=== PATIENT | male | born 1950 | race Caucasian/White ===

== ENCOUNTER 2019-09-06 05:01 | Inpatient (IN) | payer MEDICARE, OTHER, SELFPAY ==
[2019-09-06] VITALS (8 sets, daily range): BP systolic 139–184; BP diastolic 62–85; PULSE 54–90; RESP 16–22; TEMP 36.3–37.1; O2SAT 91–97; BMI 30.4
--- NOTE | 2019-09-06 05:14 | CTR_ITS ---
PROCEDURE INFORMATION: Exam: CT Abdomen And Pelvis With Contrast Exam date and time: 09/06/2019 5:19 AM Age: 69 years old Clinical indication: Abdominal pain; Generalized; Patient HX: Severe diffuse abd pain with nausea starting last night; Additional info: Rlq pain TECHNIQUE: Imaging protocol: Computed tomography of the abdomen and pelvis with intravenous contrast. Total DLP: 1226.54 mGy-cm Radiation optimization: All CT scans at this facility use at least one of these dose optimization techniques: automated exposure control; mA and/or kV adjustment per patient size (includes targeted exams where dose is matched to clinical indication); or iterative reconstruction. Contrast material: OMNI 300; Contrast volume: 95 ml; Contrast route: 20G LAC; COMPARISON: CT pelvis w con* [id number] 11/28/2016 12:32 PM FINDINGS: Liver: There is a 2.1 cm simple appearing cystic mass seen within the right hepatic lobe. Gallbladder and bile ducts: There are multiple small gallstones present. There are no inflammatory changes present to suggest cholecystitis. Pancreas: There are strandy opacity seen adjacent to the pancreatic body and tail and some fluid attenuation seen within the lateral conal fascia on the left and adjacent to Generose fascia. These findings raise suspicion for pancreatitis. Spleen: Normal. No splenomegaly. Adrenals: Normal. No mass. Kidneys and ureters: There is a 7.7 mm simple appearing cystic mass seen within the right kidney. There are stable nonobstructing right renal calculi present. Stomach and bowel: There are loops of nondilated small bowel containing some desiccated bowel contents, findings suggesting stasis and small bowel enteritis. Appendix: The appendix is visualized and is normal in configuration. Intraperitoneal space: Unremarkable. No free air. No significant fluid collection. Vasculature: Unremarkable. No abdominal aortic aneurysm. Lymph nodes: Unremarkable. No enlarged lymph nodes. Bladder: Unremarkable as visualized. Reproductive: Unremarkable as visualized. Bones/joints: Unremarkable. No acute fracture. Soft tissues: Unremarkable. CT/CT abdomen pelvis w con* [id number] IMPRESSION: 1. There are strandy opacity seen in the peripancreatic fat and fascia adjacent to the pancreatic body and tail and some strandy opacities of fluid attenuation is seen on T0 this fascia and lateral conal fascia on the left, findings compatible with inflammatory changes and pancreatitis. 2. Simple right hepatic cyst measuring 2.1 cm. No further workup needed. 3. Multiple small gallstones without evidence of cholecystitis. 4. Simple appearing right renal cyst measuring 7.7 mm 5. Stable nonobstructing right renal calculi 6. Nondilated small bowel loops containing desiccated bowel contents could represent stasis and small bowel enteritis. COMMENT: Consistent with the [employer]'s Incidental Findings Committee Report (J Am David Radiol 2010): Unless the patient's specific circumstances suggest otherwise, any liver lesion 0.5 cm or less, any cystic kidney lesion less than 1.0 cm, and/or any adrenal lesion 1.0 cm or less not otherwise characterized in this report as possessing suspicious or indeterminate imaging features is/are highly likely to be benign and do not require follow-up imaging or biopsy. Radiation Dose CTDIVOL = (mGy): DLP = 1226.54 (mGy-cm)
--- NOTE | 2019-09-06 05:16 | ED_ITS ---
Documented by User: Josr Adams DO 09/06/19 06:34 HPI - Abdominal Pain General: Chief Complaint: Abdominal Pain Stated Complaint: ABD PAIN Time Seen by Provider: 09/06/19 05:10 History of Present Illness: MD elicited complaint: abdominal pain Location: Epigastric and RLQ Quality: dull Associated Symptoms: Reports bloating and nausea; Denies constipation, diarrhea, dysuria, fever(s), hematuria and vomiting Review of Systems Const: Denies: fever Card: Denies: chest pain, palpitations, irregular heart rhythm, edema, swelling of feet/ankles, shortness of breath on exertion or shortness of breath when lying down Resp: Denies: shortness of breath, productive cough, non-productive cough or wheezing GI: Reports: nausea and bloating; Denies: vomiting, diarrhea or constipation : Denies: difficulty urinating, painful urination, urinary frequency, urinary urgency or blood in urine Skin/Breast: Denies: rash, itching or redness Neuro: Denies: headache, dizziness, vertigo, confusion or seizure-like activity Psych: Denies: anxiety, visual hallucinations or auditory hallucinations PFSH ED PFSH: Statuses (acute, chronic, etc) shown below reflect problem list status as previously entered and may not be historically accurate Medical History Hypertension (Acute) Hypertrophic obstructive cardiomyopathy (Acute) Pancreatic lesion (Acute) Surgical History History of open reduction and internal fixation (ORIF) procedure (Acute) R distal Radius 09/10/2018 Family History Brother CAD (coronary artery disease), Onset Age: 50 Father CAD (coronary artery disease) Social History Smoking and tobacco status: never smoked Alcohol intake: never Substance/Drug Use: never Physical Exam Const: COMMON NORMALS: alert GENERAL APPEARANCE: well developed ORIENTATION/CONSCIOUSNESS: Yes awake, Yes oriented to person, Yes oriented to place and Yes oriented to time Eye: COMMON NORMALS: PERRL, EOMs intact bilaterally and conjunctivae normal EYELID: eyelids normal CONJUNCTIVA: Yes conjunctivae normal PUPIL: Yes PERRL Chest: COMMONS NORMALS: inspection of chest normal CHEST: Yes symmetrical chest wall rise and No tenderness Resp: COMMON NORMALS: clear to auscultation bilaterally EFFORT & INSPECTION: No tachypneic, No respiratory distress, No retractions, No uses accessory muscles and No tracheal deviation AUSCULTATION: clear to auscultation bilaterally, no rhonchi, no wheezes and lung sounds not diminished Cardio: COMMON NORMALS: regular rate and regular rhythm RATE: regular rate RHYTHM: regular rhythm HEART SOUNDS: no murmurs PERIPHERAL PULSES: radial pulses present GI: INSPECTION: Yes abdominal distension AUSCULTATION: No hyperactive bowel sounds and No hypoactive bowel sounds PALPATION: Yes tender, Yes guarding and No rigid PERCUSSION: no dullness to percussion and no tympanic to percussion : COMMON NORMALS: Yes no CVA tenderness BLADDER/KIDNEY EXAM: Yes no CVA tenderness Back/Pelvis: COMMON NORMALS: no CVA tenderness Neuro: SENSORIUM/ORIENTATION: Yes alert, Yes oriented to person, Yes oriented to place and Yes oriented to time Psych: COMMON NORMALS: mental status grossly normal and speech normal SPEECH: Yes normal speech Skin: COMMON NORMALS: no rashes or lesions noted GENERAL SKIN EXAM: no rashes or lesions noted Course ED course: 69-year-old male with abdominal pain, bloating, nausea since 10:30 PM last night. He is tender in the periumbilical and right lower quadrant regions. No history of abdominal surgery. No vomiting. No blood in the stool. No fever, no leukocytosis. Minimal elevation in bilirubin. Lipase is 2500. CT is pending. Vital Signs: Vital signs: Vital Signs Temperature 99.1 F 09/08/19 07:35 Pulse Rate 59 L 09/08/19 07:35 Respiratory Rate 16 09/08/19 07:35 Blood Pressure 143/69 09/08/19 07:35 Pulse Oximetry 93 09/08/19 07:35 MDM - Abdominal Pain Lab Data: Labs: Lab Results 09/06/19 09/06/19 09/06/19 Range/Units 05:43 05:43 05:49 WBC 6.6 (4.0-10.0) 10^3/ uL RBC 4.91 (4.1-5.3) 10^6/u L Hgb 15.2 (11.7-16.6) g/dL Hct 45.5 (42.0-52.0) % MCV 92.7 (80-94) fL MCH 31.0 (28.0-34.0) pg MCHC 33.4 (30.0-36.0) g/dL RDW 12.1 (12.1-15.1) % Plt Count 159 (130-400) 10^3/c mm MPV 10.1 (7.4-10.4) fL Neut % (Auto) 78.5 % Lymph % (Auto) 15.6 % [place] % (Auto) 5.4 % Eos % (Auto) 0.2 % Baso % (Auto) 0.0 % Neut # (Auto) 5.2 (1.8-7.7) 10^3/u L Lymph # (Auto) 1.0 (0.8-4.8) 10^3/u L [place] # (Auto) 0.4 (0.2-0.9) 10^3/u L Eos # (Auto) 0.0 (0.0-0.8) 10^3/u L Baso # (Auto) 0.0 (0.0-0.1) 10^3/u L Nucleated RBC % (a uto) 0 % Nucleated RBCs # 0.0 /100WBC Sodium 135 L (136-145) mmol/L Potassium 4.1 (3.5-5.1) mmol/L Chloride 100 (98-107) mmol/L Carbon Dioxide 24 (22-29) mmol/L Anion Gap 15.1 (5-19) BUN 19 (8-23) mg/dL Creatinine 0.7 (0.7-1.2) mg/dL GFR Calculation 112.1 (90-130) mL/min Glucose 155 H (74-106) mg/dL Estimat Average Gl ucose 108 Hemoglobin A1c 5.4 (4.0-6.0) % Calcium 9.4 (8.8-10.2) mg/Dl Total Bilirubin 1.5 H (0.15-1.2) mg/dL AST 30 (0-40) U/L ALT 33 (0-41) U/L Alkaline Phosphata se 84 (40-130) IU/L Total Protein 7.3 (6.6-8.7) g/dL Albumin 4.3 (3.5-5.2) g/dL Globulin 3.0 (1.3-4.6) g/dL Lipase 2549 H (13-60) U/L Discharge Plan Discharge Patient Disposition: Admitted As Inpatient Admit Provider: Millicent Fonseca Clinical Impression: Pancreatitis, Hypertension, Pancreatic lesion Condition: Stable Referrals: Eduardo Evans DO [Primary Care Provider] - Discharge Date/Time: 09/06/19 14:52 Sign Out Sign Out Data: Patient Sign Out occurred on 09/06/19 at 08:05. Patient's care was discussed, and care was transferred from Josr Adams DO to Osvaldo Quan DO. Sign Out Comment: Lipase is 2500. CT is pending. Signed out to Dr. Duran at shift change. Last updated by Josr Adams DO at 09/06/19 06:34 Coding Level of Care Code ED Credentialing Coordinator for Chg Fwd Documented by User: Андрей Ferrera MD 09/06/19 07:17 HPI - Abdominal Pain General: Chief Complaint: Abdominal Pain Stated Complaint: ABD PAIN Time Seen by Provider: 09/06/19 05:10 PFSH ED PFSH: Statuses (acute, chronic, etc) shown below reflect problem list status as previously entered and may not be historically accurate Medical History Hypertension (Acute) Hypertrophic obstructive cardiomyopathy (Acute) Pancreatic lesion (Acute) Surgical History History of open reduction and internal fixation (ORIF) procedure (Acute) R distal Radius 09/10/2018 Family History Brother CAD (coronary artery disease), Onset Age: 50 Father CAD (coronary artery disease) Social History Smoking and tobacco status: never smoked Alcohol intake: never Substance/Drug Use: never Course Vital Signs: Vital signs: Vital Signs Temperature 99.1 F 09/08/19 07:35 Pulse Rate 59 L 09/08/19 07:35 Respiratory Rate 16 09/08/19 07:35 Blood Pressure 143/69 09/08/19 07:35 Pulse Oximetry 93 09/08/19 07:35 MDM - Abdominal Pain Lab Data: Labs: Lab Results 09/06/19 09/06/19 09/06/19 Range/Units 05:43 05:43 05:49 WBC 6.6 (4.0-10.0) 10^3/ uL RBC 4.91 (4.1-5.3) 10^6/u L Hgb 15.2 (11.7-16.6) g/dL Hct 45.5 (42.0-52.0) % MCV 92.7 (80-94) fL MCH 31.0 (28.0-34.0) pg MCHC 33.4 (30.0-36.0) g/dL RDW 12.1 (12.1-15.1) % Plt Count 159 (130-400) 10^3/c mm MPV 10.1 (7.4-10.4) fL Neut % (Auto) 78.5 % Lymph % (Auto) 15.6 % [place] % (Auto) 5.4 % Eos % (Auto) 0.2 % Baso % (Auto) 0.0 % Neut # (Auto) 5.2 (1.8-7.7) 10^3/u L Lymph # (Auto) 1.0 (0.8-4.8) 10^3/u L [place] # (Auto) 0.4 (0.2-0.9) 10^3/u L Eos # (Auto) 0.0 (0.0-0.8) 10^3/u L Baso # (Auto) 0.0 (0.0-0.1) 10^3/u L Nucleated RBC % (a uto) 0 % Nucleated RBCs # 0.0 /100WBC Sodium 135 L (136-145) mmol/L Potassium 4.1 (3.5-5.1) mmol/L Chloride 100 (98-107) mmol/L Carbon Dioxide 24 (22-29) mmol/L Anion Gap 15.1 (5-19) BUN 19 (8-23) mg/dL Creatinine 0.7 (0.7-1.2) mg/dL GFR Calculation 112.1 (90-130) mL/min Glucose 155 H (74-106) mg/dL Estimat Average Gl ucose 108 Hemoglobin A1c 5.4 (4.0-6.0) % Calcium 9.4 (8.8-10.2) mg/Dl Total Bilirubin 1.5 H (0.15-1.2) mg/dL AST 30 (0-40) U/L ALT 33 (0-41) U/L Alkaline Phosphata se 84 (40-130) IU/L Total Protein 7.3 (6.6-8.7) g/dL Albumin 4.3 (3.5-5.2) g/dL Globulin 3.0 (1.3-4.6) g/dL Lipase 2549 H (13-60) U/L Discharge Plan Discharge Patient Disposition: Admitted As Inpatient Admit Provider: Millicent Fonseca Clinical Impression: Pancreatitis, Hypertension, Pancreatic lesion Condition: Stable Referrals: Eduardo Evans DO [Primary Care Provider] - Discharge Date/Time: 09/06/19 14:52 Sign Out Sign Out Data: Patient Sign Out occurred on 09/06/19 at 08:05. Patient's care was discussed, and care was transferred from Josr Adams DO to Osvaldo Quan DO. Sign Out Comment: Lipase is 2500. CT is pending. Signed out to Dr. Duran at shift change. Last updated by Josr Adams DO at 09/06/19 06:34 Coding Level of Care Code ED Credentialing Coordinator for Chg Fwd Documented by User: Osvaldo Quan DO 09/08/19 10:48 HPI - Abdominal Pain General: Chief Complaint: Abdominal Pain Stated Complaint: ABD PAIN Time Seen by Provider: 09/06/19 05:10 PFSH ED PFSH: Statuses (acute, chronic, etc) shown below reflect problem list status as previously entered and may not be historically accurate Medical History Hypertension (Acute) Hypertrophic obstructive cardiomyopathy (Acute) Pancreatic lesion (Acute) Surgical History History of open reduction and internal fixation (ORIF) procedure (Acute) R distal Radius 09/10/2018 Family History Brother CAD (coronary artery disease), Onset Age: 50 Father CAD (coronary artery disease) Social History Smoking and tobacco status: never smoked Alcohol intake: never Substance/Drug Use: never Course ED course: MRCP is showing a 15 x 8 mm mass not impinging on the ducts there is no choledocholithiasis discussed with Dr. Fonseca. She is requesting evaluation or input from GI prior to taking admission. Were wanting to make sure does not require an emergent ERCP. Vital Signs: Vital signs: Vital Signs Temperature 99.1 F 09/08/19 07:35 Pulse Rate 59 L 09/08/19 07:35 Respiratory Rate 16 09/08/19 07:35 Blood Pressure 143/69 09/08/19 07:35 Pulse Oximetry 93 09/08/19 07:35 MDM - Abdominal Pain Lab Data: Labs: Lab Results 09/06/19 09/06/19 09/06/19 Range/Units 05:43 05:43 05:49 WBC 6.6 (4.0-10.0) 10^3/ uL RBC 4.91 (4.1-5.3) 10^6/u L Hgb 15.2 (11.7-16.6) g/dL Hct 45.5 (42.0-52.0) % MCV 92.7 (80-94) fL MCH 31.0 (28.0-34.0) pg MCHC 33.4 (30.0-36.0) g/dL RDW 12.1 (12.1-15.1) % Plt Count 159 (130-400) 10^3/c mm MPV 10.1 (7.4-10.4) fL Neut % (Auto) 78.5 % Lymph % (Auto) 15.6 % [place] % (Auto) 5.4 % Eos % (Auto) 0.2 % Baso % (Auto) 0.0 % Neut # (Auto) 5.2 (1.8-7.7) 10^3/u L Lymph # (Auto) 1.0 (0.8-4.8) 10^3/u L [place] # (Auto) 0.4 (0.2-0.9) 10^3/u L Eos # (Auto) 0.0 (0.0-0.8) 10^3/u L Baso # (Auto) 0.0 (0.0-0.1) 10^3/u L Nucleated RBC % (a uto) 0 % Nucleated RBCs # 0.0 /100WBC Sodium 135 L (136-145) mmol/L Potassium 4.1 (3.5-5.1) mmol/L Chloride 100 (98-107) mmol/L Carbon Dioxide 24 (22-29) mmol/L Anion Gap 15.1 (5-19) BUN 19 (8-23) mg/dL Creatinine 0.7 (0.7-1.2) mg/dL GFR Calculation 112.1 (90-130) mL/min Glucose 155 H (74-106) mg/dL Estimat Average Gl ucose 108 Hemoglobin A1c 5.4 (4.0-6.0) % Calcium 9.4 (8.8-10.2) mg/Dl Total Bilirubin 1.5 H (0.15-1.2) mg/dL AST 30 (0-40) U/L ALT 33 (0-41) U/L Alkaline Phosphata se 84 (40-130) IU/L Total Protein 7.3 (6.6-8.7) g/dL Albumin 4.3 (3.5-5.2) g/dL Globulin 3.0 (1.3-4.6) g/dL Lipase 2549 H (13-60) U/L Imaging Data ^: MRI: Radiologist's impression: MRI/MRCP OF THE ABDOMEN WITHOUT GADOLINIUM ENHANCEMENT TECHNIQUE: Thin and thick slab MRCP, Axial T2, Coronal MRCP, Axial Dual Echo, and Axial 2-D Fiesta imaging was obtained. Coronal 2-D Fiesta imaging. CLINICAL INFORMATION: pancreatitis w cholelithiasis COMPARISON: CT 1 FINDINGS: Images moderately degraded by patient motion. Peripancreatic inflammatory changes consistent with pancreatitis. T2 hyperintense lesion of the head of the pancreas measuring approximately 15 x 8 mm. This is adjacent to the distal common bile duct and confluence of the pancreatic duct. No significant pancreatic duct dilatation. This is difficult to further characterize due to patient motion. Cholelithiasis. No evidence of choledocholithiasis. Incidental hepatic cyst measuring 2.4 cm right hepatic lobe. No evidence of drainable abscess or fluid collection. Attempted notification Osvaldo Quan DO at 09/06/2019 10:41 AM. MR/MR MRCP 50041 Impression: 1. Peripancreatic inflammatory stranding consistent with pancreatitis. No drainable abscess or fluid collection. 2. No evidence of choledocholithiasis. Cholelithiasis. Lobulated T2 hyperintense lesion involving the pancreatic head measuring 15 x 8 mm adjacent to the distal common bile duct and pancreatic duct confluence. Differential considerations include pancreatic pseudocyst, cystic pancreatic neoplasm, or or sidebranch IPMN. Recommend further evaluation with ERCP. Dictated By:Matt Steward MD Discharge Plan Discharge Patient Disposition: Admitted As Inpatient Admit Provider: Millicent Fonseca Clinical Impression: Pancreatitis, Hypertension, Pancreatic lesion Condition: Stable Referrals: Eduardo Evans DO [Primary Care Provider] - Discharge Date/Time: 09/06/19 14:52 Sign Out Sign Out Data: Patient Sign Out occurred on 09/06/19 at 08:05. Patient's care was discussed, and care was transferred from Josr Adams DO to Osvaldo Quan DO. Sign Out Comment: Lipase is 2500. CT is pending. Signed out to Dr. Duran at shift change. Last updated by Josr Adams DO at 09/06/19 06:34 Coding Level of Care Code ED Credentialing Coordinator for Chg Fwchanel
--- NOTE | 2019-09-06 05:32 | PC.NURSE ---
Introduced self to patient and initiated vital signs. Pt is A&O x 4 and agreeable. Pt states that the reason for the ER visit today is due to abdominal pain which presented at approximately 2200. Reassured patient of needs and will continue to monitor. Awaiting provider at bedside.
[2019-09-06 05:48] LABS: Eosinophils % 0.2 %; Hematocrit 45.5 % (42.0-52.0); Hemoglobin 15.2 g/dL (11.7-16.6); Lymphocytes % 15.6 %; Mean Corpuscular HGB Conc 33.4 g/dL (30.0-36.0); Mean Corpuscular Volume 92.7 fL (80-94); Mean Platelet Volume 10.1 fL (7.4-10.4); Monocytes # 0.4 10^3/uL (0.2-0.9); Monocytes % 5.4 %; Neutrophils # 5.2 10^3/uL (1.8-7.7); Neutrophils % 78.5 %; Nucleated Red Blood Cells % 0 %; Platelet Count 159 10^3/cmm (130-400); Red Blood Count 4.91 10^6/uL (4.1-5.3); Red Cell Distribution Width 12.1 % (12.1-15.1); White Blood Count 6.6 10^3/uL (4.0-10.0)
[2019-09-06] MEDS: ondansetron 2 mg/ML SDV 2 mL 4 MG IVP (05:53)
[2019-09-06] MEDS: morphine 4 mg/mL SDV 1 mL IVP ×4 (05:53→15:28)
[2019-09-06] MEDS: sodium chloride 0.9% 500 ML IV (05:53)
[2019-09-06 06:01] LABS: Alanine Aminotransferase 33 U/L (0-41); Albumin Level 4.3 g/dL (3.5-5.2); Alkaline Phosphatase 84 IU/L (40-130); Anion Gap 15.1 (5-19); Aspartate Amino Transferase 30 U/L (0-40); Blood Urea Nitrogen 19 mg/dL (8-23); Calcium 9.4 mg/Dl (8.8-10.2); Carbon Dioxide 24 mmol/L (22-29); Chloride 100 mmol/L (98-107); Glomerular Filtration Rate 112.1 mL/min (90-130); Glucose 155 mg/dL (74-106); Potassium 4.1 mmol/L (3.5-5.1); Sodium 135 mmol/L (136-145); Total Bilirubin 1.5 mg/dL (0.15-1.2); Total Protein 7.3 g/dL (6.6-8.7)
[2019-09-06 06:10] LABS: Lipase 2549 U/L (13-60)
[2019-09-06] MEDS: iohexol 300 mg/mL 100 mL Btl IV (06:27)
--- NOTE | 2019-09-06 06:34 | PC.NURSE ---
Pt back from imaging.
--- NOTE | 2019-09-06 08:06 | ED_ITS ---
HPI - Abdominal Pain General: Chief Complaint: Abdominal Pain Stated Complaint: ABD PAIN Time Seen by Provider: 09/06/19 05:10 History of Present Illness: HPI narrative: Care assumed at change of shift from Dr. Adams. CT scan confirms diagnosis of pancreatitis lipase is [address]. We will keep patient n.p.o. IV fluids antibiotics and pain medications along with antiemetics will discuss with hospitalist elicited complaint: abdominal pain Quality: dull PFSH ED PFSH: Statuses (acute, chronic, etc) shown below reflect problem list status as previously entered and may not be historically accurate Medical History Hypertension (Acute) Hypertrophic obstructive cardiomyopathy (Acute) Pancreatic lesion (Acute) Surgical History History of open reduction and internal fixation (ORIF) procedure (Acute) R distal Radius 09/10/2018 Family History Brother CAD (coronary artery disease), Onset Age: 50 Father CAD (coronary artery disease) Social History Smoking and tobacco status: never smoked Alcohol intake: never Substance/Drug Use: never Physical Exam Const: COMMON NORMALS: no apparent distress GENERAL APPEARANCE: cooperative and comfortable ORIENTATION/CONSCIOUSNESS: Yes awake, Yes oriented to person, Yes oriented to place and Yes oriented to time HENMT: COMMON NORMALS: normocephalic, head/scalp atraumatic, hearing grossly normal bilaterally, external ears normal, EAC's normal, TM's normal bilaterally, nasal mucous membranes and turbinates normal, moist oral mucous membranes and oropharynx normal HEAD & SCALP: normocephalic and atraumatic NOSE: nasal mucous membranes and turbinates normal EXTERNAL EAR: Yes external ears normal EXTERNAL AUDITORY CANAL: EAC's normal TYMPANIC MEMBRANE: TM's normal bilaterally Eye: COMMON NORMALS: PERRL, EOMs intact bilaterally, conjunctivae normal and no scleral icterus CONJUNCTIVA: Yes conjunctivae normal PUPIL: Yes PERRL Neck/C-Spine: COMMON NORMALS: full ROM, no lymphadenopathy, supple and no JVD Lymph: LYMPHATIC: no lymphadenopathy noted and no lymphedema noted Resp: COMMON NORMALS: normal respiratory effort, no retractions, no use of accessory muscles and clear to auscultation bilaterally AUSCULTATION: clear to auscultation bilaterally Cardio: COMMON NORMALS: no JVD, regular rate, regular rhythm and no murmurs RATE: regular rate RHYTHM: regular rhythm GI: COMMON NORMALS: no hepatosplenomegaly AUSCULTATION: Yes normoactive bowel sounds PALPATION: Yes tender (Epigastric) Details: LUQ and Yes no hepatosplenomegaly Extremity: COMMON NORMALS: normal to inspection, normal capillary refill, no clubbing, cyanosis or edema, no calf tenderness and no pedal edema Neuro: SENSORIUM/ORIENTATION: Yes oriented to person, Yes oriented to place and Yes oriented to time Skin: COMMON NORMALS: no rashes or lesions noted GENERAL SKIN EXAM: no rashes or lesions noted Course ED course: Discussed with Dr. Fonseca. She asked that we get an MRCP to make sure there is no obstruction to the pancreatic or common bile duct, reviewed CT. MRCP report reviewed. Patient has a 15 x 8 mm nodule at the junction of the pancreatic and common duct there is no signs of impingement or mass-effect on the ducts discussed with the radiologist. Also discussed with GI at [facility] they do not recommend referral for ERCP at this time they recommend that that be done in about 6 to 8 weeks after pancreatitis has been treated and patient is recovered. Recommend typical routine conservative treatment here at home C and referral for ERCP at a later date with Dr. Trujillo. Discussed Dr. Fonseac. Vital Signs: Vital signs: Vital Signs Temperature 98.5 F 09/07/19 07:41 Pulse Rate 59 L 09/07/19 07:41 Respiratory Rate 16 09/07/19 07:41 Blood Pressure 112/67 09/07/19 07:41 Pulse Oximetry 91 09/07/19 07:41 MDM - Abdominal Pain Lab Data: Attestation: I reviewed the patient's lab results. Labs: Lab Results 09/06/19 09/06/19 09/06/19 Range/Units 05:43 05:43 05:49 WBC 6.6 (4.0-10.0) 10^3/ uL RBC 4.91 (4.1-5.3) 10^6/u L Hgb 15.2 (11.7-16.6) g/dL Hct 45.5 (42.0-52.0) % MCV 92.7 (80-94) fL MCH 31.0 (28.0-34.0) pg MCHC 33.4 (30.0-36.0) g/dL RDW 12.1 (12.1-15.1) % Plt Count 159 (130-400) 10^3/c mm MPV 10.1 (7.4-10.4) fL Neut % (Auto) 78.5 % Lymph % (Auto) 15.6 % [place] % (Auto) 5.4 % Eos % (Auto) 0.2 % Baso % (Auto) 0.0 % Neut # (Auto) 5.2 (1.8-7.7) 10^3/u L Lymph # (Auto) 1.0 (0.8-4.8) 10^3/u L [place] # (Auto) 0.4 (0.2-0.9) 10^3/u L Eos # (Auto) 0.0 (0.0-0.8) 10^3/u L Baso # (Auto) 0.0 (0.0-0.1) 10^3/u L Nucleated RBC % (a uto) 0 % Nucleated RBCs # 0.0 /100WBC Sodium 135 L (136-145) mmol/L Potassium 4.1 (3.5-5.1) mmol/L Chloride 100 (98-107) mmol/L Carbon Dioxide 24 (22-29) mmol/L Anion Gap 15.1 (5-19) BUN 19 (8-23) mg/dL Creatinine 0.7 (0.7-1.2) mg/dL GFR Calculation 112.1 (90-130) mL/min Glucose 155 H (74-106) mg/dL Estimat Average Gl ucose 108 Hemoglobin A1c 5.4 (4.0-6.0) % Calcium 9.4 (8.8-10.2) mg/Dl Total Bilirubin 1.5 H (0.15-1.2) mg/dL AST 30 (0-40) U/L ALT 33 (0-41) U/L Alkaline Phosphata se 84 (40-130) IU/L Total Protein 7.3 (6.6-8.7) g/dL Albumin 4.3 (3.5-5.2) g/dL Globulin 3.0 (1.3-4.6) g/dL Lipase 2549 H (13-60) U/L Imaging Data ^: MRI: Radiologist's impression: MRI/MRCP OF THE ABDOMEN WITHOUT GADOLINIUM ENHANCEMENT TECHNIQUE: Thin and thick slab MRCP, Axial T2, Coronal MRCP, Axial Dual Echo, and Axial 2-D Fiesta imaging was obtained. Coronal 2-D Fiesta imaging. CLINICAL INFORMATION: pancreatitis w cholelithiasis COMPARISON: CT 1 FINDINGS: Images moderately degraded by patient motion. Peripancreatic inflammatory changes consistent with pancreatitis. T2 hyperintense lesion of the head of the pancreas measuring approximately 15 x 8 mm. This is adjacent to the distal common bile duct and confluence of the pancreatic duct. No significant pancreatic duct dilatation. This is difficult to further characterize due to patient motion. Cholelithiasis. No evidence of choledocholithiasis. Incidental hepatic cyst measuring 2.4 cm right hepatic lobe. No evidence of drainable abscess or fluid collection. Attempted notification Osvaldo Quan DO at 09/06/2019 10:41 AM. MR/MR MRCP [id number] Impression: 1. Peripancreatic inflammatory stranding consistent with pancreatitis. No drainable abscess or fluid collection. 2. No evidence of choledocholithiasis. Cholelithiasis. Lobulated T2 hyperintense lesion involving the pancreatic head measuring 15 x 8 mm adjacent to the distal common bile duct and pancreatic duct confluence. Differential considerations include pancreatic pseudocyst, cystic pancreatic neoplasm, or or sidebranch IPMN. Recommend further evaluation with ERCP. Dictated By:Matt Steward MD CT Abd/Pel: Radiologist's impression: PROCEDURE INFORMATION: Exam: CT Abdomen And Pelvis With Contrast Exam date and time: 09/06/2019 5:19 AM Age: 69 years old Clinical indication: Abdominal pain; Generalized; Patient HX: Severe diffuse abd pain with nausea starting last night; Additional info: Rlq pain TECHNIQUE: Imaging protocol: Computed tomography of the abdomen and pelvis with intravenous contrast. Total DLP: 1226.54 mGy-cm Radiation optimization: All CT scans at this facility use at least one of these dose optimization techniques: automated exposure control; mA and/or kV adjustment per patient size (includes targeted exams where dose is matched to clinical indication); or iterative reconstruction. Contrast material: OMNI 300; Contrast volume: 95 ml; Contrast route: 20G LAC; COMPARISON: CT pelvis w con* [id number] 11/28/2016 12:32 PM FINDINGS: Liver: There is a 2.1 cm simple appearing cystic mass seen within the right hepatic lobe. Gallbladder and bile ducts: There are multiple small gallstones present. There are no inflammatory changes present to suggest cholecystitis. Pancreas: There are strandy opacity seen adjacent to the pancreatic body and tail and some fluid attenuation seen within the lateral conal fascia on the left and adjacent to Generose fascia. These findings raise suspicion for pancreatitis. Spleen: Normal. No splenomegaly. Adrenals: Normal. No mass. Kidneys and ureters: There is a 7.7 mm simple appearing cystic mass seen within the right kidney. There are stable nonobstructing right renal calculi present. Stomach and bowel: There are loops of nondilated small bowel containing some desiccated bowel contents, findings suggesting stasis and small bowel enteritis. Appendix: The appendix is visualized and is normal in configuration. Intraperitoneal space: Unremarkable. No free air. No significant fluid collection. Vasculature: Unremarkable. No abdominal aortic aneurysm. Lymph nodes: Unremarkable. No enlarged lymph nodes. Bladder: Unremarkable as visualized. Reproductive: Unremarkable as visualized. Bones/joints: Unremarkable. No acute fracture. Soft tissues: Unremarkable. CT/CT abdomen pelvis w con* [id number] IMPRESSION: 1. There are strandy opacity seen in the peripancreatic fat and fascia adjacent to the pancreatic body and tail and some strandy opacities of fluid attenuation is seen on T0 this fascia and lateral conal fascia on the left, findings compatible with inflammatory changes and pancreatitis. 2. Simple right hepatic cyst measuring 2.1 cm. No further workup needed. 3. Multiple small gallstones without evidence of cholecystitis. 4. Simple appearing right renal cyst measuring 7.7 mm 5. Stable nonobstructing right renal calculi 6. Nondilated small bowel loops containing desiccated bowel contents could represent stasis and small bowel enteritis. COMMENT: Consistent with the [employer]'s Incidental Findings Committee Report (J Am David Radiol 2010): Unless the patient's specific circumstances suggest otherwise, any liver lesion 0.5 cm or less, any cystic kidney lesion less than 1.0 cm, and/or any adrenal lesion 1.0 cm or less not otherwise characterized in this report as possessing suspicious or indeterminate imaging features is/are highly likely to be benign and do not require follow-up imaging or biopsy. Radiation Dose CTDIVOL = (mGy): DLP = 1226.54 (mGy-cm) Dictated By:Cisco Barbosa MD Discharge Plan Discharge Patient Disposition: Admitted As Inpatient Admit Provider: Millicent Fonseca Clinical Impression: Pancreatitis, Hypertension, Pancreatic lesion Condition: Stable Interventions: ED Discharge Assessment Last Done: 09/06/19 14:04 Discharge Date/Time: 09/06/19 14:52 Sign Out Sign Out Data: Patient Sign Out occurred on 09/06/19 at 08:05. Patient's care was discussed, and care was transferred from Josr Adams DO to Osvaldo Quan DO. Sign Out Comment: Lipase is 2500. CT is pending. Signed out to Dr. Duran at shift change. Last updated by Josr Adams DO at 09/06/19 06:34 Coding Level of Care Code ED Trading Manager for Chg Fwd Exam Problem Focused
--- NOTE | 2019-09-06 08:10 | MR_ITS ---
WS: [id number] MRI/MRCP OF THE ABDOMEN WITHOUT GADOLINIUM ENHANCEMENT TECHNIQUE: Thin and thick slab MRCP, Axial T2, Coronal MRCP, Axial Dual Echo, and Axial 2-D Fiesta imaging was obtained. Coronal 2-D Fiesta imaging. CLINICAL INFORMATION: pancreatitis w cholelithiasis COMPARISON: CT 1 FINDINGS: Images moderately degraded by patient motion. Peripancreatic inflammatory changes consistent with spencer creatitis. T2 hyperintense lesion of the head of the pancreas measuring approximately 15 x 8 mm. This is adjacent to the distal common bile duct and confluence of the pancreatic duct. No significant spencer creatic duct dilatation. This is difficult to further characterize due to patient motion. Cholelithiasis. No evidence of choledocholithiasis. Incidental hepatic cyst measuring 2.4 cm right he patic lobe. No evidence of drainable abscess or fluid collection. Attempted notification Osvaldo Quan DO at 09/06/2019 10:41 AM. MR/MR MRCP [id number] Impression: 1. Peripancreatic inflammatory stranding consistent with pancreatitis. No drai nable abscess or fluid collection. 2. No evidence of choledocholithiasis. Cholelithiasis. Lobulated T2 hyperintense lesion involving the pancreatic head measuring 15 x 8 mm adjacent to the distal common bile duct and pancreatic duct confluence. Dif ferential considerations include pancreatic pseudocyst, cystic pancreatic neopl asm, or or sidebranch IPMN. Recommend further evaluation with ERCP.
--- NOTE | 2019-09-06 09:18 | PC.NURSE ---
Patient to MRI at this time
--- NOTE | 2019-09-06 10:22 | PC.NURSE ---
returned from MRI
--- NOTE | 2019-09-06 12:56 | P.HP_ITS ---
Providers/Chief Complaint Admitting Physician: Millicent Fonseca DO Primary Care Provider: Eduardo Evans DO Chief Complaint: ABD PAIN History of Present Illness Shimon Schwarz is a 69 year old male presented to the emergency department today for abdominal pain. He reported that pain began suddenly at 230 this morning in the center of his abdomen radiating to his back. He reports not having any pain similar to this in the past, no recent fevers or chills. He denies any recent weight loss, no jaundice skin appreciated. Denies any pruritus. Patient does report having ringworm on the lower extremities, ankles bilaterally of which she has been following with his primary care provider. He denies any recent medication changes. Stated that he only takes an aspirin at home when he remembers to take it and heart medication when he remembers to take it. He stated that he has been told that he had hypertrophic obstructive cardiomyopathy in the past, however no longer follows with cardiology. He does report having obstructive sleep apnea and using a home CPAP. Patient denies any recent sick contacts, no recent dietary changes or concern with poorly prepared food. He stated that he has been having nausea since 230 this morning when the abdominal pain began with no vomiting, stated that he felt like he was going to but only had dry heaves. Patient was seen and evaluated in the emergency department noted to have concern for acute pancreatitis with cholelithiasis therefore MRCP was performed for further evaluation. MRCP showed no evidence of choledocholithiasis, lobulated T2 hyper intense lesion involving the pancreatic head measuring 15 x 8 mm, findings were discussed with collections manager on-call at [facility] in [facility], Dr. Trujillo. Recommendation was to continue to treat pancreatitis as normal and recommend outpatient follow-up in 4 weeks and further discussion for ERCP at that time. Review of Systems Const: Denies: fever or chills Eyes: Denies: change in vision ENMT: Denies: nasal congestion Card: Denies: chest pain, palpitations or edema Resp: Denies: shortness of breath, productive cough or coughing up blood GI: Reports: abdominal pain and nausea; Denies: vomiting, diarrhea, constipation, blood in stool or black tarry stool : Denies: painful urination or blood in urine Musc: Denies: extremity pain or muscle cramps Skin/Breast: Reports: other (reported ring worm in LE bilaterally); Denies: new lesion Neuro: Denies: headache or dizziness Psych: Denies: anxiety or depression Endo: Denies: excessive urination or hot flashes David/Lymph: Denies: easy bruising or easy bleeding Medications/Allergies Home Medications Medication Instructions Recorded Confirmed Last Taken Type aspirin [Aspir-81] 81 mg PO DAILY 09/06/19 09/06/19 Unknown History carvedilol [Coreg] 6.25 mg PO BID 09/06/19 09/06/19 Unknown History Allergies Allergy/AdvReac Type Severity Reaction Status Date / Time No Known Allergies Allergy Verified 09/06/19 05:05 PFSH Acute PFSH: Statuses (acute, chronic, etc) shown below reflect problem list status as previously entered and may not be historically accurate Medical History (Updated 09/06/19 @ 13:05 by Millicent Fonseca DO) Hypertension (Acute) Hypertrophic obstructive cardiomyopathy (Acute) Pancreatic lesion (Acute) Surgical History (Updated 09/06/19 @ 13:07 by Millicent Fonseca DO) History of open reduction and internal fixation (ORIF) procedure (Acute) R distal Radius 09/10/2018 Family History (Updated 09/06/19 @ 13:07 by Millicent Fonseca DO) Brother CAD (coronary artery disease), Onset Age: 50 Father CAD (coronary artery disease) Social History (Updated 09/06/19 @ 13:07 by Millicent Fonseca DO) Smoking and tobacco status: never smoked Alcohol intake: never Substance/Drug Use: never Vitals/I&O/Wt Last Vital Signs Temp 97.4 F L 09/06/19 05:06 Pulse 54 L 09/06/19 11:32 Resp 16 09/06/19 11:32 BP 166/77 09/06/19 11:32 Pulse Ox 92 09/06/19 11:32 Weight last 48 hrs Weight 90.718 kg Physical Exam Const: COMMON NORMALS: oriented x3 and alert GENERAL APPEARANCE: cooperative ORIENTATION/CONSCIOUSNESS: Yes awake, Yes oriented to person, Yes oriented to place and Yes oriented to time HENMT: COMMON NORMALS: normocephalic and head/scalp atraumatic HEAD & SCALP: normocephalic and atraumatic Eye: COMMON NORMALS: PERRL PUPIL: Yes PERRL Neck/C-Spine: COMMON NORMALS: supple GENERAL: Yes normal visual inspection Resp: COMMON NORMALS: normal respiratory effort and clear to auscultation bilaterally EFFORT & INSPECTION: Yes able to speak in complete sentences AUSCULTATION: clear to auscultation bilaterally, no rhonchi and no wheezes Cardio: COMMON NORMALS: regular rate, regular rhythm and no murmurs RATE: regular rate RHYTHM: regular rhythm GI: INSPECTION: No abdominal distension AUSCULTATION: Yes normoactive bowel sounds PALPATION: Yes soft and Yes tender (epigastric region) Extremity: COMMON NORMALS: no clubbing, cyanosis or edema and no calf tenderness Neuro: COMMON NORMALS: oriented x3, CN's II-XII intact bilaterally, moves all extremities and no focal motor deficits SENSORIUM/ORIENTATION: Yes alert, Yes oriented to person, Yes oriented to place and Yes oriented to time SPEECH: speech normal Psych: COMMON NORMALS: mental status grossly normal and cooperative Skin: NARRATIVE SKIN EXAM: erythema over the ankles bilaterally, L>R Data : 09/06/19 05:43 09/06/19 05:43 CT Abd/Pel: Radiologist's impression: Personally reviewed, report as read by radiologist: IMPRESSION: 1. There are strandy opacity seen in the peripancreatic fat and fascia adjacent to the pancreatic body and tail and some strandy opacities of fluid attenuation is seen on T0 this fascia and lateral conal fascia on the left, findings compatible with inflammatory changes and pancreatitis. 2. Simple right hepatic cyst measuring 2.1 cm. No further workup needed. 3. Multiple small gallstones without evidence of cholecystitis. 4. Simple appearing right renal cyst measuring 7.7 mm 5. Stable nonobstructing right renal calculi 6. Nondilated small bowel loops containing desiccated bowel contents could represent stasis and small bowel enteritis. MRI: Radiologist's impression: MRCP personally reviewed, report as read by radiologist: Impression: 1. Peripancreatic inflammatory stranding consistent with pancreatitis. No drainable abscess or fluid collection. 2. No evidence of choledocholithiasis. Cholelithiasis. Lobulated T2 hyperintense lesion involving the pancreatic head measuring 15 x 8 mm adjacent to the distal common bile duct and pancreatic duct confluence. Differential considerations include pancreatic pseudocyst, cystic pancreatic ne oplasm, or or sidebranch IPMN. Recommend further evaluation with ERCP. A&P Assessment and plan (1) Pancreatitis: NPO with bowel rest IVF, NS continued from ED Morphine as needed for pain CT A/P and MRCP as noted above, findings discussed with patient and his . Dr. Quan discussed with Dr. Trujillo, collections manager at [facility] in [place], about MRCP findings. Recommendation was to continue with conservative management at this time and recommend outpatient follow-up in 4 weeks for discussion of ERCP at that time. No evidence of choledocholithiasis on MRCP Status: Acute Code(s): K85.90 - Acute pancreatitis without necrosis or infection, unspecified (2) Pancreatic lesion: Findings were discussed with collections manager at [facility] in [place], recommend outpatient follow-up in [address] Trujillo. Lobulated T2 hyperintense lesion involving the pancreatic head measuring 15 x 8 mm adjacent to the distal common bile duct and pancreatic duct confluence Status: Acute Code(s): K86.9 - Disease of pancreas, unspecified (3) Hypertrophic obstructive cardiomyopathy: Previously followed by cardiology, no longer following. Recommended to continue on Coreg Status: Acute Code(s): I42.1 - Obstructive hypertrophic cardiomyopathy (4) Hypertension: Occasionally takes Coreg at home, will continue at this time Status: Acute Code(s): I10 - Essential (primary) hypertension Additional A&P Information Additional A&P Information: Diet: N.p.o. DVT prophylaxis: Lovenox CODE STATUS: Full code Attestations Medical Necessity Statement*: Patient requires hospitalization due to pancreatitis with lobulated pancreatic lesion, expected stay greater than 2 midnights Coding Level of Care Code Acute Chain Maker Loom Control for g Fwd Diagnoses Pancreatitis K85.90 Pancreatic lesion K86.9 Hypertrophic obstructive cardiomyopathy I42.1 Hypertension I10
[2019-09-06 14:23] LABS: Estmated Average Glucose 108; Hemoglobin A1C 5.4 % (4.0-6.0)
[2019-09-06] MEDS: enoxaparin 40 mg/0.4 mL Syringe SUBCUT (15:27)
[2019-09-06] MEDS: lactated ringers 1,000 ML 125 ML IV (15:28)
[2019-09-06 16:22] LABS: Troponin(5th) Baseline 6 ng/mL (0-15)
[2019-09-06 16:48] LABS: Glucose Point of Care 105 mg/dL (70-110)
--- NOTE | 2019-09-06 16:50 | ECG_ITS ---
Measurements Intervals [place] Rate: 62 P: 48 [place]: 196 QRS: 40 QRSD: 106 T: 46 QT: 415 QTc: 423 SINUS RHYTHM NONSPECIFIC T-WAVE ABNORMALITY No previous ECG available for comparison Electronically Signed On 09-06-2019 19:37:[address] CL[address] by Albert Brownlee M.D. [email or web address]
[2019-09-06] MEDS: carvedilol 6.25 mg Tablet PO (18:08)
[2019-09-06 18:49] LABS: Troponin 5 2HR 6.76 ng/mL (0-15); Troponin 5 2HR Delta 0.76 ABS# (0-10)
--- NOTE | 2019-09-06 20:50 | ECG_ITS ---
Measurements Intervals [place] Rate: 61 P: 54 AL: 199 QRS: 39 QRSD: 105 T: 41 QT: 430 QTc: 435 SINUS RHYTHM NONSPECIFIC T-WAVE ABNORMALITY No previous ECG available for comparison Electronically Signed On 09-06-2019 19:36:39 SALES REPRESENTATIVE SUPERVISOR by Albert Brownlee M.D. [email or web address]
[2019-09-06] MEDS: sodium chloride 0.9% 1,000 ML 125 ML IV (21:59)
[2019-09-06 22:39] LABS: Glucose Point of Care 109 mg/dL (70-110)
[2019-09-07] VITALS (9 sets, daily range): BP systolic 93–131; BP diastolic 58–71; PULSE 59–86; RESP 16–20; TEMP 36.9–38; O2SAT 91–96
[2019-09-07 02:54] LABS: Glucose Urine UA Norm (Normal); Protein Urine Neg (Negative); Specific Gravity, Urine 1.025 (1.005-1.030); Urine Appearance Hazy (CLEAR); Urine Color Yellow (Yellow); pH Urine 5 (5-7)
[2019-09-07 02:55] LABS: Add Urine Microscopic? YES; Bilirubin Urine Neg (NEGATIVE); Blood Urine Neg (Negative); Ketones Urine 1+ (Negative); Leukocyte Esterase Urine Negative (Negative); Nitrate Urine Negative (Negative); Urobilinogen Urine Norm (Negative)
[2019-09-07 02:57] LABS: Add Urine Culture? Yes; Bacteria Urine 2+; RBC Urine 0-4 /hpf (0-2); Squamous Epithelial Cell Urine 0-4 (0-5)
[2019-09-07 03:39] LABS: Alanine Aminotransferase 23 U/L (0-41); Albumin Level 3.8 g/dL (3.5-5.2); Alkaline Phosphatase 77 IU/L (40-130); Anion Gap 12.4 (5-19); Aspartate Amino Transferase 21 U/L (0-40); Blood Urea Nitrogen 16 mg/dL (8-23); Calcium 8.5 mg/Dl (8.8-10.2); Carbon Dioxide 26 mmol/L (22-29); Chloride 103 mmol/L (98-107); Globulin 2.7 g/dL (1.3-4.6); Glomerular Filtration Rate 96.1 mL/min (90-130); Glucose 116 mg/dL (74-106); Potassium 4.4 mmol/L (3.5-5.1); Sodium 137 mmol/L (136-145); Total Bilirubin 2.1 mg/dL (0.15-1.2); Total Protein 6.5 g/dL (6.6-8.7)
[2019-09-07 03:59] LABS: Eosinophils % 0.1 %; Hematocrit 45.9 % (42.0-52.0); Hemoglobin 14.9 g/dL (11.7-16.6); Lymphocytes # 1.2 10^3/uL (0.8-4.8); Lymphocytes % 13.1 %; Mean Corpuscular HGB Conc 32.5 g/dL (30.0-36.0); Mean Corpuscular Volume 98.5 fL (80-94); Mean Platelet Volume 10.6 fL (7.4-10.4); Monocytes # 0.6 10^3/uL (0.2-0.9); Monocytes % 6.8 %; Neutrophils # 7.4 10^3/uL (1.8-7.7); Neutrophils % 79.7 %; Nucleated Red Blood Cells % 0 %; Platelet Count 139 10^3/cmm (130-400); Red Blood Count 4.66 10^6/uL (4.1-5.3); Red Cell Distribution Width 12.3 % (12.1-15.1); White Blood Count 9.3 10^3/uL (4.0-10.0)
[2019-09-07 04:14] LABS: Lipase 617 U/L (13-60)
[2019-09-07] MEDS: lactated ringers 1,000 ML 125 ML IV (05:42)
[2019-09-07] MEDS: morphine 4 mg/mL SDV 1 mL IVP (06:05)
[2019-09-07] MEDS: carvedilol 6.25 mg Tablet PO ×2 (08:59→17:32)
[2019-09-07] MEDS: aspirin 81 mg EC Tablet PO (08:59)
--- NOTE | 2019-09-07 10:39 | PM.PN ---
Subjective Subjective: Interval history: Patient awake in bed at time of exam this morning. He reported that he had some nausea this morning with sips of water, abdominal pain has improved. Discussed with patient again MRCP findings and need for outpatient evaluation neck Self with Dr. Trujillo due to findings on the pancreas, he verbalized understanding and agreed with plan. Vitals/I&O/Wt Last Vital Signs Temp 98.5 F 09/07/19 07:41 Pulse 59 L 09/07/19 07:41 Resp 16 09/07/19 07:41 BP 112/67 09/07/19 07:41 Pulse Ox 91 09/07/19 07:41 09/06/19 09/07/19 09/07/19 22:59 06:59 14:59 Intake Total 1480 / 1480 1000 / 2480 Balance 1480 / 1480 1000 / 2480 Weight last 48 hrs Weight 93.979 kg Weight 90.718 kg Physical Exam Const: COMMON NORMALS: oriented x3 and alert GENERAL APPEARANCE: cooperative ORIENTATION/CONSCIOUSNESS: Yes awake, Yes oriented to person, Yes oriented to place and Yes oriented to time HENMT: COMMON NORMALS: normocephalic and head/scalp atraumatic HEAD & SCALP: normocephalic and atraumatic Eye: COMMON NORMALS: PERRL PUPIL: Yes PERRL Resp: COMMON NORMALS: normal respiratory effort and clear to auscultation bilaterally EFFORT & INSPECTION: Yes able to speak in complete sentences AUSCULTATION: clear to auscultation bilaterally, no rhonchi and no wheezes Cardio: COMMON NORMALS: regular rate, regular rhythm and no murmurs RATE: regular rate RHYTHM: regular rhythm GI: COMMON NORMALS: soft to palpation INSPECTION: No abdominal distension AUSCULTATION: Yes normoactive bowel sounds PALPATION: Yes soft and Yes tender (epigastric region, improved today) Extremity: COMMON NORMALS: no clubbing, cyanosis or edema and no calf tenderness Neuro: COMMON NORMALS: oriented x3, CN's II-XII intact bilaterally, moves all extremities and no focal motor deficits SENSORIUM/ORIENTATION: Yes alert, Yes oriented to person, Yes oriented to place and Yes oriented to time SPEECH: speech normal Psych: COMMON NORMALS: mental status grossly normal and cooperative Skin: NARRATIVE SKIN EXAM: erythema over the ankles bilaterally, L>R A&P Assessment and plan (1) Pancreatitis: Continue with n.p.o. status Reports slight improvement in symptoms today, will slowly advance diet as tolerated over the next [address] A/P and MRCP as noted above, findings discussed with patient and his . Dr. Quan discussed with Dr. Trujillo, weatherization operations manager at [facility] in [place], about MRCP findings. Recommendation was to continue with conservative management at this time and recommend outpatient follow-up in 4 weeks for discussion of ERCP at that time. No evidence of choledocholithiasis on MRCP Status: Acute Code(s): K85.90 - Acute pancreatitis without necrosis or infection, unspecified (2) Pancreatic lesion: Findings were discussed with weatherization operations manager at [facility] in [place], recommend outpatient follow-up in [address] Trujillo. Lobulated T2 hyperintense lesion involving the pancreatic head measuring 15 x 8 mm adjacent to the distal common bile duct and pancreatic duct confluence Status: Acute Code(s): K86.9 - Disease of pancreas, unspecified (3) Hypertrophic obstructive cardiomyopathy: Previously followed by cardiology, no longer following. Recommended to continue on Coreg Status: Acute Code(s): I42.1 - Obstructive hypertrophic cardiomyopathy (4) Hypertension: Occasionally takes Coreg at home, will continue at this time Status: Acute Code(s): I10 - Essential (primary) hypertension Additional A&P Information Diet: N.p.o. DVT prophylaxis: Lovenox CODE STATUS: Full code Attestations Medical Necessity Statement*: Patient requires continued hospitalization due to acute pancreatitis with lesion in the pancreatic head Coding Level of Care Code Acute Systems Technician for [facility] Fwd Diagnoses Pancreatitis K85.90 Pancreatic lesion K86.9 Hypertrophic obstructive cardiomyopathy I42.1 Hypertension I10
[2019-09-07] MEDS: pneumococcal (23 valent) SDV 0.5 mL IM (12:04)
[2019-09-07] MEDS: sodium chloride 0.9% 1,000 ML 125 ML IV ×2 (13:42→21:45)
[2019-09-07] MEDS: enoxaparin 40 mg/0.4 mL Syringe SUBCUT (14:36)
--- NOTE | 2019-09-07 15:23 | PC.CHAP ---
Pastoral Care Encounter/Spiritual Assessment Type of Contact [] Declined stakeholder manager visit [] Patient/Family/Request visit [] Outpatient visit [x] Follow-up visit [] Physician referral [] Code/Alert [] Routine visit [] Staff referral [] Actively dying [] Patient sleeping [] Family support [] [] Out of room [] Palliative care [] [] Receiving care in room [] Pre-surgical visit [] Trauma [] Long length of stay [] ICU visit [] Other: Relational/Emotional Strength [] Patient feels connected with others/family/visitors/staff [] Distress [] Loneliness/isolation [] Abandonment Spirituality of Patient [] Person of Jennifer [] Attends Druze of their Jennifer [] Believes in Prayer [] Reads Bible or Anabaptism materials [] There are Spiritual issues to be addressed Regular Senior Care Provider Interventions [] Prayer [] Active listening [] Non-anxious presence [] Spiritual/emotional support [] Crisis/trauma care [] Spiritual counseling [] Bereavement support [] Provided bereavement packet [] Provided Bible/devotional materials [] Provided toy/stuffed animal, coloring book to patient or family member [] Completed spiritual assessment [] Provided Communion [] Anointing/[place] [] Salvation [] Other: Impact on Illness or Injury [] Angry [] Fearful [] Anxious [] Often cries [] Exhaustion [] Unable to work [] Unable to attend hoahaoism [] Unable to walk/stand [] Unable to read [] Unable to drive [] Unable to eat/drink [] Unable to sleep [] Unable to be with family [] Other: Summary patient was asleep needs follow up rosaliocarmela phillips Time spent with patient
--- NOTE | 2019-09-07 19:14 | PC.NURSE ---
Introduction of staff and report received, aidet.
[2019-09-07] MEDS: acetaminophen 325 mg Tablet 650 MG PO (21:03)
[2019-09-08] VITALS (7 sets, daily range): BP systolic 131–156; BP diastolic 69–76; PULSE 59–66; RESP 16–20; TEMP 37.2–38.1; O2SAT 93–94
[2019-09-08] MEDS: sodium chloride 0.9% 1,000 ML 125 ML IV ×2 (03:39→13:08)
[2019-09-08] MEDS: morphine 4 mg/mL SDV 1 mL IVP (05:51)
[2019-09-08 06:43] LABS: Basophils % 0.1 %; Eosinophils % 0.2 %; Hematocrit 41.6 % (42.0-52.0); Hemoglobin 13.8 g/dL (11.7-16.6); Lymphocytes # 1.3 10^3/uL (0.8-4.8); Lymphocytes % 12.9 %; Mean Corpuscular HGB Conc 33.2 g/dL (30.0-36.0); Mean Corpuscular Hemoglobin 31.9 pg (28.0-34.0); Mean Corpuscular Volume 96.3 fL (80-94); Mean Platelet Volume 11.1 fL (7.4-10.4); Monocytes # 0.8 10^3/uL (0.2-0.9); Monocytes % 8.1 %; Neutrophils # 7.6 10^3/uL (1.8-7.7); Neutrophils % 78.1 %; Nucleated Red Blood Cells % 0 %; Platelet Count 119 10^3/cmm (130-400); Red Blood Count 4.32 10^6/uL (4.1-5.3); Red Cell Distribution Width 12.1 % (12.1-15.1); White Blood Count 9.7 10^3/uL (4.0-10.0)
[2019-09-08 06:48] LABS: Alanine Aminotransferase 16 U/L (0-41); Albumin Level 3.4 g/dL (3.5-5.2); Alkaline Phosphatase 72 IU/L (40-130); Anion Gap 12.6 (5-19); Aspartate Amino Transferase 20 U/L (0-40); Blood Urea Nitrogen 13 mg/dL (8-23); Calcium 8.1 mg/Dl (8.8-10.2); Carbon Dioxide 25 mmol/L (22-29); Chloride 103 mmol/L (98-107); Globulin 2.9 g/dL (1.3-4.6); Glomerular Filtration Rate 112.1 mL/min (90-130); Glucose 91 mg/dL (74-106); Potassium 3.6 mmol/L (3.5-5.1); Sodium 137 mmol/L (136-145); Total Bilirubin 2.9 mg/dL (0.15-1.2); Total Protein 6.3 g/dL (6.6-8.7)
[2019-09-08] MEDS: carvedilol 6.25 mg Tablet PO (09:21)
[2019-09-08] MEDS: aspirin 81 mg EC Tablet PO (09:21)
--- NOTE | 2019-09-08 14:04 | P.DS_ITS ---
Discharge Providers Date of Admission: 09/06/19 11:41 Date of Discharge: 09/08/19 Attending Provider at Admission: Millicent Fonseca MD Attending Provider at Discharge: Mani Davila MD Primary Care Provider: Eduardo Evans DO Diagnoses at Discharge Discharge Diagnosis (1) Pancreatitis: Status: Acute (2) Pancreatic lesion: Status: Acute (3) Hypertrophic obstructive cardiomyopathy: Status: Acute (4) Hypertension: Status: Acute Reason for Visit Reason for Visit: Reason For Visit: ABD PAIN Hospital Course Hospital Course: Patient was admitted to the hospital for increasing abdominal pain and nausea. He was found to have acute pancreatitis. His CT scan and subsequent MRCP revealed a 1.5 cm mass at the head of the pancreas. Dr. Duran in the ER discussed this with Dr. Trujillo at [facility] and they decided to have him managed conservatively here and they will follow-up with him as an outpatient for probably an ERCP and biopsy. Patient received IV fluids and pain medications. Over the next couple days he done very well. Pain is completely resolved today. He is having some back pain but no abdominal pain. No nausea or vomiting. He did have a slight temperature last night but was not aware of it himself. Blood work was normal with the exception of his T bili had increased slightly from the day before. Patient is very anxious for discharge today. We will proceed with discharge with strict precautions call if symptoms worsen. He will be given Levaquin for an antibiotic. He will have close follow-up in the clinic. Physical Exam Narrative: EXAM NARRATIVE: General: No acute distress, Alert. Well nourished. Heart: Regular rate and rhythm. No murmurs, rubs or gallops. Normal capillary refill. Lungs: Clear to auscultation. No wheezes, rhonchi or rales. Abdomen: Positive bowel sounds. Non-tender, non-distended. No hepatosplenomegaly. No gaurding. Extremities: No clubbing, cyanosis, or edema. Negative Sola's Discharge Data Data Completed and Pending: Completed Studies During Hospitalization Category Date Time Status CT abdomen pelvis w con* [id number] Urge nt Cat Scan 09/06/19 05:14 Completed MR MRCP [id number] Sta t MRI 09/06/19 08:10 Completed Pending at discharge Category Date Time Status Urine Culture Sta t Lab 09/07/19 01:22 Results Labs from last 24 hours 09/08/19 09/08/19 05:16 05:16 WBC 9.7 RBC 4.32 Hgb 13.8 Hct 41.6 L MCV 96.3 H MCH 31.9 MCHC 33.2 RDW 12.1 Plt Count 119 L MPV 11.1 H Neut % (Auto) 78.1 Lymph % (Auto) 12.9 [place] % (Auto) 8.1 Eos % (Auto) 0.2 Baso % (Auto) 0.1 Neut # (Auto) 7.6 Lymph # (Auto) 1.3 [place] # (Auto) 0.8 Eos # (Auto) 0.0 Baso # (Auto) 0.0 Nucleated RBC % (a uto) 0 Nucleated RBCs # 0.0 Sodium 137 Potassium 3.6 Chloride 103 Carbon Dioxide 25 Anion Gap 12.6 BUN 13 Creatinine 0.7 GFR Calculation 112.1 Glucose 91 Calcium 8.1 L Total Bilirubin 2.9 H AST 20 ALT 16 Alkaline Phosphata se 72 Total Protein 6.3 L Albumin 3.4 L Globulin 2.9 Vitals: Last Vital Signs Temp 99.0 F 09/08/19 11:16 Pulse 62 09/08/19 11:16 Resp 18 09/08/19 11:16 BP 154/71 09/08/19 11:16 Pulse Ox 93 09/08/19 11:16 Discharge Plan Discharge Patient Disposition: Home, Self-Care Condition: Stable Prescriptions: New levofloxacin [Levaquin] 750 mg tablet 750 mg PO DAILY 7 Days RF: 0 Continued Aspir-81 81 mg Tablet,Delayed Release (Dr/Ec) 81 mg PO DAILY RF: 0 Coreg 6.25 mg Tablet 6.25 mg PO BID RF: 0 Discharge Orders: Discharge Order (Routine); Ordered 09/08/19 Ordered By: Mani Davila Referrals: Eduardo Evans DO [Primary Care Provider] - 4-7 days Discharge Diet: Full LIquid Discharge Activity: Increase activity as tolerated Activity Restrictions/Additional Instructions: -He has been diagnosed with pancreatitis. Possibly from a cyst or mass in your pancreas. -You will need to follow-up with Dr. Antony in the clinic in the next few days. You will also need to have a follow-up appointment with Dr. Trujillo a GI specialist in [place] for further evaluation of the pancreas. -Call if you have increasing abdominal pain, vomiting, fevers, -Continue all of your home medications the same. We are adding 1 new medication of Levaquin 1 pill once a day for 7 days. -Continue with a liquid diet for the next 2 to 3 days. If you are doing well you can slowly increase this to a regular diet over the next week. Avoid all alcohol and any fatty foods. Discharge Attestations Time Spent in Discharge Care*: greater than 30 min Quality Metrics Clinical Quality Measures During this hospital stay, did patient experience: None Coding Level of Care Code Acute Scientific Glass Blower for Mariella Moralez Diagnoses Pancreatitis K85.90 Pancreatic lesion K86.9 Hypertrophic obstructive cardiomyopathy I42.1 Hypertension I10
== END 2019-09-08 15:46 | disposition home or self-care (01) | DRG 439 ==
LOC: ER 09:17 → MEDSURG 13:41
PROVIDERS: Emergency Medicine; Admitting Provider Family Medicine; Emergency Provider Family Medicine; Family Provider Family Medicine; PCP Family Medicine; Visit Provider Family Medicine
DX: K85.90 Acute pancreatitis without necrosis or infection, unspecified (principal); I42.1 Obstructive hypertrophic cardiomyopathy; G47.33 Obstructive sleep apnea (adult) (pediatric); I10 Essential (primary) hypertension; K80.20 Calculus of gallbladder without cholecystitis without obstruction; K86.9 Disease of pancreas, unspecified; Z79.82 Long term (current) use of aspirin
CPT/HCPCS: 12345; 36415; 36416; 74177; 74181; 80053; 81003; 82962; 83036; 83690; 84484; 85025; 87086; 90686; 90732; 93005; 94660; 96372; 96374; 96375; 99281; J1650; J2270; J2405; J7030; J7040; Q9967

== ENCOUNTER → 2022-01-10 13:05 | Outpatient (BNVA) | payer MEDICARE, SELFPAY | PROVIDERS: Family Provider Family Medicine; PCP Family Medicine; Visit Provider Family Medicine | DX: N20.0 Calculus of kidney (principal); K85.90 Acute pancreatitis without necrosis or infection, unspecified | CPT/HCPCS: 80053; 80061; 82365; 84550; 85025; 88300 ==

== ENCOUNTER → 2022-03-07 13:51 | Outpatient (BNVA) | payer MEDICARE, SELFPAY | PROVIDERS: Family Provider Family Medicine; PCP Family Medicine; Visit Provider Clinical Nurse Specialist Adult Health | DX: R79.89 Other specified abnormal findings of blood chemistry (principal); R10.9 Unspecified abdominal pain | CPT/HCPCS: 80076; 81000; 85025; 87086 ==

== ENCOUNTER 2022-05-12 10:41 | Emergency (ER) | payer MEDICARE, SELFPAY ==
[2022-05-12 10:51] VITALS: BP 122/71; PULSE 52; RESP 14; TEMP 36.3; O2SAT 98; BMI 31.9
--- NOTE | 2022-05-12 10:59 | W.ED.DIZZY ---
HPI - Dizziness General: Chief Complaint: Dizziness Stated Complaint: Dizzy Time Seen by Provider: 05/12/22 10:51 History of Present Illness: HPI Narrative: 71-year-old male presents with episode of dizziness. 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 Patient reports that he had to sit down because of the dizziness. He denies any nausea or vomiting. He reports that the dizziness has improved and almost resolved denies just got a real slight headache. He denied any focal weakness. He denies any associated chest pain, fevers chills or other systemic complaints. Associated symptoms: Denies chest pain, chills, malaise, nausea, palpitations, syncope or vomiting Review of Systems Const: Denies: fever(s), chills or malaise Eyes: Denies: change in vision or blurry vision ENMT: Denies: throat pain or ear or mastoid pain Card: Denies: chest pain, palpitations or syncope Resp: Denies: dyspnea, productive cough or wheezing GI: Denies: abdominal pain, nausea or vomiting Musc: Denies: neck pain or back pain Skin/Breast: Denies: rash or pruritus Neuro: Reports: dizziness Psych: Denies: anxiety or depression PFSH ED PFSH: Medical History (Updated 05/12/22 @ 12:26 by Jackson Alvarado DO) Hypertension Hypertrophic obstructive cardiomyopathy Pancreatic lesion Surgical History History of open reduction and internal fixation (ORIF) procedure R distal Radius 09/10/2018 Family History Brother CAD (coronary artery disease), Onset Age: 50 Father CAD (coronary artery disease) Social History Smoking and tobacco status: never smoked Alcohol intake: never Physical Exam Const: COMMON NORMALS: no acute distress, patient oriented x3 and no limitations HENMT: COMMON NORMALS: normocephalic, atraumatic, hearing grossly normal bilaterally and moist oral mucous membranes HEAD & SCALP: normocephalic and atraumatic Neck/C-Spine: COMMON NORMALS: full ROM and supple Resp: COMMON NORMALS: normal respiratory effort, No retractions and No use of accessory muscles Cardio: COMMON NORMALS: regular rhythm RATE: bradycardic RHYTHM: regular rhythm GI: COMMON NORMALS: Soft to palpation and non-tender PALPATION: Yes Soft to palpation Extremity: COMMON NORMALS: normal to inspection, full ROM and capillary refill normal Neuro: COMMON NORMALS: patient oriented x3, CN's II-XII intact bilaterally, moves all extremities, no focal motor deficits, no sensory deficits noted and gait normal Psych: COMMON NORMALS: mental status grossly normal, Normal thought process present, cooperative, normal affect and speech normal SPEECH: Yes normal speech THOUGHT PROCESS: Normal thought process present Skin: COMMON NORMALS: no rashes or lesions noted and no wounds GENERAL SKIN EXAM: no rashes or lesions noted Course Vital Signs: Vital signs: Vital Signs Temperature 97.4 F L 05/12/22 10:51 Pulse Rate 52 L 05/12/22 10:51 Respiratory Rate 14 05/12/22 10:51 Blood Pressure 122/71 05/12/22 10:51 Pulse Oximetry 98 05/12/22 10:51 Oxygen Delivery Me thod 05/12/22 10:51 MDM - Dizziness Medical Decision Making Patient with his baseline sinus bradycardia otherwise no acute findings. Patient with negative labs, negative head CT. Patient symptoms had resolved prior to arriving to the ER. Discussed with him need to follow-up with his primary care provider to review his medications and generalized wellness exam. Patient stable and discharged home Lab Data : 05/12/22 11:30 05/12/22 11:[address] 05/12/22 11:04 IMPRESSION: No acute intracranial abnormality. Laboratory Results WBC 4.5 10^3/uL (4.0-10.0) 05/12/22 11:30 RBC 4.73 10^6/uL (4.1-5.3) 05/12/22 11:30 Hgb 15.1 g/dL (11.7-16.6) 05/12/22 11:30 Hct 46.5 % (42.0-52.0) 05/12/22 11:30 MCV 98.3 fl (80-94) H 05/12/22 11:30 MCH 31.9 pg (28.0-34.0) 05/12/22 11:30 MCHC 32.5 g/dL (30.0-36.0) 05/12/22 11:30 RDW 11.9 % (12.1-15.1) L 05/12/22 11:30 Plt Count 133 10^3/cmm (130-400) 05/12/22 11:30 MPV 11.0 fL (7.4-10.4) H 05/12/22 11:30 Neut % (Auto) 68.0 % 05/12/22 11:30 Lymph % (Auto) 15.8 % 05/12/22 11:30 [place] % (Auto) 13.3 % 05/12/22 11:30 Eos % (Auto) 2.0 % 05/12/22 11:30 Baso % (Auto) 0.2 % 05/12/22 11:30 Neut # (Auto) 3.06 10^3/uL (1.8-7.7) 05/12/22 11:30 Lymph # (Auto) 0.7 10^3/uL (0.8-4.8) L 05/12/22 11:30 [place] # (Auto) 0.6 10^3/uL (0.2-0.9) 05/12/22 11:30 Eos # (Auto) 0.1 10^3/uL (0.0-0.8) 05/12/22 11:30 Baso # (Auto) 0.0 10^3/uL (0.0-0.1) 05/12/22 11:30 Nucleated RBC % (auto) 0 % 05/12/22 11:30 Nucleated RBCs # 0.0 /100WBC 05/12/22 11:30 Sodium 139 mmol/L (136-145) 05/12/22 11:30 Potassium 4.1 mmol/L (3.5-5.1) 05/12/22 11:30 Chloride 104 mmol/L (98-107) 05/12/22 11:30 Carbon Dioxide 24 mmol/L (22-29) 05/12/22 11:30 Anion Gap 15.1 (5-19) 05/12/22 11:30 BUN 22 mg/dL (8-23) 05/12/22 11:30 Creatinine 1.0 mg/dL (0.7-1.2) 05/12/22 11:30 Glucose 111 mg/dL (65-115) 05/12/22 11:30 Calculated Osmolality 292 mOsm/kg (285-295) 05/12/22 11:30 Magnesium 2.3 mg/dL (1.7-2.3) 05/12/22 11:30 Alkaline Phosphatase 83 U/L (40-130) 05/12/22 11:30 Troponin T Baseline 9 ng/L (0-15) 05/12/22 11:30 C-Reactive Protein 3.0 mg/L (0.0-4.9) 05/12/22 11:30 Total Protein 6.6 g/dL (6.6-8.7) 05/12/22 11:30 Albumin 4.0 g/dL (3.5-5.2) 05/12/22 11:30 Globulin 2.6 g/dL (1.3-4.6) 05/12/22 11:30 EKG Data EKG 1: I personally reviewed and interpreted this EKG as follows: EKG interpretation date: 05/12/22 EKG interpretation time: 11:17 Interpretation: Heart rate 47, sinus bradycardia. No acute ST or T wave changes, nonspecific T wave changes. MA 208 QRS 101 Discharge Plan Discharge Patient Disposition: Home Clinical Impression: Dizziness of unknown etiology, Bradycardia Condition: Stable Prescriptions: No Action Aspir-81 81 mg Tablet,Delayed Release (Dr/Ec) 81 mg PO DAILY Coreg 6.25 mg Tablet 6.25 mg PO BID Discharge Orders: Discharge ED (Routine); Ordered 05/12/22 Ordered By: Jackson Alvarado Referrals: Eduardo Evans DO [Primary Care Provider] - Discharge Diet: Usual diet Discharge Activity: Resume usual activity Patient Instructions: Opioid Safety, Pain Management Activity Restrictions/Additional Instructions: Follow-up with your primary care provider next week to review medications and generalized medical exam Return to the ER as needed Coding Level of Care Code ED Delivery Department Supervisor for Chg Fwd Exam Comprehensive
--- NOTE | 2022-05-12 11:04 | CTR_ITS ---
PROCEDURE INFORMATION: Exam: CT Head Without Contrast Exam date and time: 05/12/2022 11:39 AM Age: 71 years old Clinical indication: Dizziness TECHNIQUE: Imaging protocol: Computed tomography of the head without contrast. Radiation optimization: All CT scans at this facility use at least one of these dose optimization techniques: automated exposure control; mA and/or kV adjustment per patient size (includes targeted exams where dose is matched to clinical indication); or iterative reconstruction. COMPARISON: No relevant prior studies available. RADIATION DOSE METRICS: Total DLP (mGy-cm): 992.68 FINDINGS: Brain: No intracranial hemorrhage. Normal martino white differentiation. No evidence of edema or territorial infarct. No abnormal mass effect or midline shift. No extra-axial fluid collection. Cerebral ventricles: No ventriculomegaly. Paranasal sinuses: Visualized sinuses are unremarkable. No fluid levels. Mastoid air cells: Visualized mastoid air cells are well aerated. Bones/joints: No acute fracture. Soft tissues: Unremarkable. CT/CT head wo con* [id number] IMPRESSION: No acute intracranial abnormality.
--- NOTE | 2022-05-12 11:05 | ECG_ITS ---
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 Measurements Intervals [place] Rate: 47 P: 34 SD: 208 QRS: 16 QRSD: 101 T: 38 QT: 454 QTc: 403 Interpretive Statements SINUS BRADYCARDIA NONSPECIFIC T-WAVE ABNORMALITY Compared to ECG 09/06/2019 17:34:17 Sinus rhythm no longer present T-wave abnormality still present Electronically Signed On 05-12-2022 17:35:36 CDT by Nic Barnes M.D. [id number]
[2022-05-12 11:41] LABS: Basophils % 0.2 %; Eosinophils # 0.1 10^3/uL (0.0-0.8); Hematocrit 46.5 % (42.0-52.0); Hemoglobin 15.1 g/dL (11.7-16.6); Lymphocytes # 0.7 10^3/uL (0.8-4.8); Lymphocytes % 15.8 %; Mean Corpuscular HGB Conc 32.5 g/dL (30.0-36.0); Mean Corpuscular Hemoglobin 31.9 pg (28.0-34.0); Mean Corpuscular Volume 98.3 fl (80-94); Monocytes # 0.6 10^3/uL (0.2-0.9); Monocytes % 13.3 %; Neutrophils # 3.06 10^3/uL (1.8-7.7); Nucleated Red Blood Cells % 0 %; Platelet Count 133 10^3/cmm (130-400); Red Blood Count 4.73 10^6/uL (4.1-5.3); Red Cell Distribution Width 11.9 % (12.1-15.1); White Blood Count 4.5 10^3/uL (4.0-10.0)
[2022-05-12 12:11] LABS: Troponin(5th) Baseline 9 ng/L (0-15)
[2022-05-12 12:15] LABS: Alanine Aminotransferase 62 U/L (0-41); Alkaline Phosphatase 83 U/L (40-130); Anion Gap 15.1 (5-19); Aspartate Amino Transferase 52 U/L (0-40); Blood Urea Nitrogen 22 mg/dL (8-23); Calcium 8.3 mg/dL (8.5-10.5); Carbon Dioxide 24 mmol/L (22-29); Chloride 104 mmol/L (98-107); Globulin 2.6 g/dL (1.3-4.6); Glomerular Filtration Rate 73.9 mL/min (90-130); Glucose 111 mg/dL (65-115); Magnesium 2.3 mg/dL (1.7-2.3); Osmolality Calculated 292 mOsm/kg (285-295); Potassium 4.1 mmol/L (3.5-5.1); Sodium 139 mmol/L (136-145); Total Bilirubin 1.8 mg/dL (0.15-1.2); Total Protein 6.6 g/dL (6.6-8.7)
[2022-05-12 12:51] VITALS: BP 138/76; PULSE 50; RESP 16; O2SAT 99
== END 2022-05-12 13:05 | disposition home or self-care (01) ==
PROVIDERS: Emergency Provider Student in an Organized Health Care Education/Training Program; PCP Family Medicine
DX: R42 Dizziness and giddiness (principal); R00.1 Bradycardia, unspecified; Z79.82 Long term (current) use of aspirin; I10 Essential (primary) hypertension
CPT/HCPCS: 70450; 80053; 83735; 84484; 85025; 86140; 93005; 99285

== ENCOUNTER → 2023-03-10 09:10 | Outpatient (BNVA) | payer MEDICARE, SELFPAY | PROVIDERS: PCP Family Medicine; Visit Provider Family Medicine | DX: R82.998 Other abnormal findings in urine (principal); R19.7 Diarrhea, unspecified; E03.9 Hypothyroidism, unspecified; Z13.6 Encounter for screening for cardiovascular disorders; I10 Essential (primary) hypertension | CPT/HCPCS: 80053; 80061; 81003; 83630; 84443; 87177; 87209; 87493; 87506 ==

== ENCOUNTER 2023-03-11 12:50 | Outpatient (CLI) | payer MEDICARE, SELFPAY ==
--- NOTE | 2023-03-11 13:00 | US_ITS ---
WS: [id number] Exam: US liver [id number] Date/Time of Exam: 03/11/2023 1:34 PM Reason For Exam: acute liver failure There appears to be lobulated mass enlargement of the head of the pancreas. Pancreatic malignancy kika uld be considered. There is dilatation of the intrahepatic bile ducts as well as the common bile duct which measures 8 mm at greatest diameter. No focal hepatic masses or nodules were identified. There is a 2.4 cm cyst in the right lobe of the liver. Portal venous flow is hepatopedal. The gallbladder i s surgically absent. The right kidney was unremarkable. No free fluid in the right abdomen. Recommendations: Contrast CT scanning of the abdomen and pelvis with oral and IV contrast would be re commended for more detailed evaluation. US/US liver [id number] IMPRESSION: 1. Lobulated mass enlargement of the pancreatic head suspicious for pancreatic malignancy. 2. Dilated common bile duct measuring 8 mm at greatest diameter and intrahepati c ductal dilatation suggesting at least partial biliary duct obstruction.
== END 2023-03-11 12:51 | disposition home or self-care (01) ==
PROVIDERS: PCP Family Medicine; Visit Provider Family Medicine
DX: K72.90 Hepatic failure, unspecified without coma (principal); K86.89 Other specified diseases of pancreas; K83.8 Other specified diseases of biliary tract
CPT/HCPCS: 76705

== ENCOUNTER → 2023-06-12 08:10 | Outpatient (BNVA) | payer MEDICARE, SELFPAY | PROVIDERS: PCP Family Medicine; Visit Provider Nurse Practitioner Family | DX: R31.9 Hematuria, unspecified (principal) | CPT/HCPCS: 80053; 81000; 84153; 85025 ==

== ENCOUNTER 2023-08-23 16:18 | Emergency (ER) | payer MEDICARE, SELFPAY ==
[2023-08-23 16:23] VITALS: BP 183/85; PULSE 57; RESP 18; TEMP 36.4; O2SAT 97; BMI 23.6
[2023-08-23 17:05] LABS: Basophils % 0.3 %; Eosinophils # 0.2 10^3/uL (0.0-0.8); Eosinophils % 1.9 %; Hematocrit 43.2 % (37-53); Lymphocytes # 1.1 10^3/uL (0.8-4.8); Lymphocytes % 13.5 %; Mean Corpuscular HGB Conc 32.6 g/dL (30-55); Mean Corpuscular Hemoglobin 32.8 pg (27-33); Mean Corpuscular Volume 100.5 fl (82-101); Mean Platelet Volume 10.2 fL (7.4-10.4); Monocytes # 0.6 10^3/uL (0.2-0.9); Monocytes % 8.1 %; Neutrophils # 6.05 10^3/uL (1.8-7.7); Neutrophils % 75.9 %; Nucleated Red Blood Cells % 0 %; Platelet Count 132 10^3/cmm (157-399); Red Cell Distribution Width 13.1 % (12.1-15.1); White Blood Count 7.95 10^3/uL (3.29-11.43)
--- NOTE | 2023-08-23 17:20 | ED_ITS ---
HPI - Back Pain/Injury 2 General: Chief Complaint: Back Pain/Injury Stated Complaint: back pain Time Seen by Provider: 08/23/23 17:04 History of Present Illness: Patient presents to the ER with complaints of having lower back pain off and on the last 2 or 3 days but getting worse and continuous all throughout the day to the point that he felt he needed to come into the ER. He also states he has been excessively urinating. Patient was curious if he had a kidney stone or kidney infection. Patient states his pain is a 7 out of 10 and is bilateral low back. Patient says his pain is not in his spine but in the sides of his back. Review of Systems 2 General: Reports: 10 or more systems reviewed and unremarkable except in HPI and below PFSH ED 2 PFSH: Medical History Pancreatic lesion Hypertrophic obstructive cardiomyopathy Hypertension Surgical History History of open reduction and internal fixation (ORIF) procedure R distal Radius 09/10/2018 Family History Brother CAD (coronary artery disease), Onset Age: 50 Father CAD (coronary artery disease) Social History Smoking and tobacco/nicotine status: never used tobacco/nicotine Alcohol intake: never Substance/Drug Use: never Adopted: No Caregiver/support person: No Lives independently: Yes Do you think of yourself as: Straight/Heterosexual Current gender identity: Male Physical Exam 2 Const: COMMON NORMALS: no acute distress, average body habitus, patient oriented x3, no limitations, healthy appearing, alert and well nourished HENMT: COMMON NORMALS: normocephalic, atraumatic, hearing grossly normal bilaterally, external ears normal, Normal external nose present, moist oral mucous membranes and oropharynx normal HEAD & SCALP: normocephalic and atraumatic NOSE: Normal external nose present EXTERNAL EAR: Yes external ears normal Neck/C-Spine: COMMON NORMALS: no JVD Chest: COMMONS NORMALS: normal inspection of the chest and normal palpation of entire chest wall Resp: COMMON NORMALS: normal respiratory effort, No retractions, No use of accessory muscles and clear to auscultation bilaterally AUSCULTATION: clear to auscultation bilaterally Cardio: COMMON NORMALS: no JVD, regular rate, regular rhythm, S1 normal heart sound present, S2 normal heart sound present, No gallops present (Cardio), No clicks present (Cardio), No murmurs present (Cardio) and No rub (Cardio) R ATE: regular rate RHYTHM: regular rhythm HEART SOUNDS: S1 normal heart sound present and S2 normal heart sound present GI: COMMON NORMALS: Normal to inspection, nondistended, normoactive bowel sounds present, Soft to palpation, non-tender, No hepatosplenomegaly present and no masses PALPATION: Yes Soft to palpation and Yes No hepatosplenomegaly present Back/Pelvis: OTHER: Tender with palpation lumbar paraspinal musculature. Spastic ropey in nature. No pain over the lumbar spinous processes. Neuro: COMMON NORMALS: patient oriented x3 SENSORIUM/ORIENTATION: Yes alert Course 2 Vital Signs: Vital signs: Vital Signs Temperature 97.6 F 08/23/23 16:23 Pulse Rate 57 L 08/23/23 16:23 Respiratory Rate 18 08/23/23 16:23 Blood Pressure 183/85 08/23/23 16:23 Pulse Oximetry 97 08/23/23 16:23 Oxygen Delivery Me thod Room Air 08/23/23 16:23 MDM - Back Pain/Injury Medical Decision Making Patient workup included CBC CMP lipase urinalysis CT scan of the abdomen pelvis blood work was essentially unremarkable, urine showed 3+ blood with positive white blood cells and mild leukocyte Estrace. Abdominal pelvic CT scan without contrast was obtained which showed the known pancreatic mass, bladder wall thickening suggesting of cystitis, and mildly swollen appendix with inflammation changes. However this may be related to the pancreatitis it said. Patient is not tender in his right lower quadrant and was well-informed about this. Patient will be discharged home on antibiotics for the urinary tract infection and should follow-up with his PCP in the next 7 to 10 days for further evaluation and treatment. Differential Diagnosis Unlikely lumbar radiculopathy, sciatica, strain of lumbar region, renal colic, pyelonephritis, thoracic back pain, AAA or discitis Medical Records I reviewed the patient's medical records. Labs I reviewed the patient's lab results. 08/23/23 17:00 08/23/23 17:00 Radiology Impressions Abdomen/Pelvis CT 08/23/23 18:01 IMPRESSION: 1. A poorly defined mass in the head of the pancreas, traversed by a common bile duct stent, consistent with patient's history of pancreatic carcinoma. There is peripancreatic inflammatory stranding also consistent with the patient's previously described pancreatitis. No peripancreatic fluid collections. 2. Bladder wall thickening suggesting cystitis, incomplete distention or chronic outflow obstruction. 3. Findings suggestive of mild acute appendicitis. Inflammatory changes in the mesentery related to pancreatitis may be a contributing factor. Clinical correlation is necessary. 4. Moderate fecal stasis throughout the colon. Laboratory Results WBC 7.95 10^3/uL (3.29-11.43) 08/23/23 17:00 RBC 4.30 10^6/uL (3.85-5.65) 08/23/23 17:00 Hgb 14.10 g/dL (11.27-16.99) 08/23/23 17:00 Hct 43.2 % (37-53) 08/23/23 17:00 MCV 100.5 fl (82-101) 08/23/23 17:00 MCH 32.8 pg (27-33) 08/23/23 17:00 MCHC 32.6 g/dL (30-55) 08/23/23 17:00 RDW 13.1 % (12.1-15.1) 08/23/23 17:00 Plt Count 132 10^3/cmm (157-399) L 08/23/23 17:00 MPV 10.2 fL (7.4-10.4) 08/23/23 17:00 Neut % (Auto) 75.9 % 08/23/23 17:00 Lymph % (Auto) 13.5 % 08/23/23 17:00 [place] % (Auto) 8.1 % 08/23/23 17:00 Eos % (Auto) 1.9 % 08/23/23 17:00 Baso % (Auto) 0.3 % 08/23/23 17:00 Neut # (Auto) 6.05 10^3/uL (1.8-7.7) 08/23/23 17:00 Lymph # (Auto) 1.1 10^3/uL (0.8-4.8) 08/23/23 17:00 [place] # (Auto) 0.6 10^3/uL (0.2-0.9) 08/23/23 17:00 Eos # (Auto) 0.2 10^3/uL (0.0-0.8) 08/23/23 17:00 Baso # (Auto) 0.0 10^3/uL (0.0-0.1) 08/23/23 17:00 Nucleated RBC % (auto) 0 % 08/23/23 17:00 Nucleated RBCs # 0.0 /100WBC 08/23/23 17:00 Sodium 140 mmol/L (136-145) 08/23/23 17:00 Potassium 3.7 mmol/L (3.5-5.1) 08/23/23 17:00 Chloride 106 mmol/L (98-107) 08/23/23 17:00 Carbon Dioxide 25 mmol/L (22-29) 08/23/23 17:00 Anion Gap 12.7 (5-19) 08/23/23 17:00 BUN 20 mg/dL (8-23) 08/23/23 17:00 Creatinine 0.5 mg/dL (0.7-1.2) L 08/23/23 17:00 GFR Calculation Not Reportable 08/23/23 17:00 Glucose 101 mg/dL (65-115) 08/23/23 17:00 Calculated Osmolality 293 mOsm/kg (285-295) 08/23/23 17:00 Calcium 8.9 mg/dL (8.5-10.5) 08/23/23 17:00 Total Bilirubin 1.6 mg/dL (0.15-1.2) H 08/23/23 17:00 AST 30 U/L (0-40) 08/23/23 17:00 ALT 42 U/L (0-41) H 08/23/23 17:00 Alkaline Phosphatase 110 U/L (40-130) 08/23/23 17:00 Total Protein 6.6 g/dL (6.6-8.7) 08/23/23 17:00 Albumin 3.9 g/dL (3.5-5.2) 08/23/23 17:00 Globulin 2.7 g/dL (1.3-4.6) 08/23/23 17:00 Lipase 20 U/L (13-60) 08/23/23 17:00 Urine Color Yellow (Yellow) 08/23/23 17:31 Urine Appearance Clear (CLEAR) 08/23/23 17:31 Urine pH 5 (5-7) 08/23/23 17:31 Ur Specific [place] 1.020 (1.005-1.030) 08/23/23 17:31 Urine Protein Trace (Negative) 08/23/23 17:31 Urine Glucose (UA) Norm (Normal) 08/23/23 17:31 Urine Ketones Negative (Negative) 08/23/23 17:31 Urine Blood 3+ (Negative) H 08/23/23 17:31 Urine Nitrate Negative (Negative) 08/23/23 17:31 Urine Bilirubin Neg (Negative) 08/23/23 17:31 Urine Urobilinogen Norm mg/dL (Negative) 08/23/23 17:31 Ur Leukocyte Esterase Trace (Negative) H 08/23/23 17:31 Urine RBC 15-25 /hpf (0-2) H 08/23/23 17:31 Urine WBC 5-10 /hpf (0-5) H 08/23/23 17:31 Ur Squamous Epith Cells None /hpf (0-5) 08/23/23 17:31 Amorphous Sediment Not Reportable 08/23/23 17:31 Urine Bacteria 1+ /hpf (NONE) H 08/23/23 17:31 No radiology studies performed this visit Discharge Plan Discharge Patient Disposition: Home Clinical Impression: Kidney stones, Urinary tract infection, Low back pain Condition: Stable Prescriptions: No Action loperamide 2 mg capsule 2 mg PO Q4H PRN (Reason: loose stool) Qty: 60 0RF Rx Instructions: take each loose stool until symptoms controlled; do not exceed 8 mg per 24 hrs tamsulosin 0.4 mg capsule PO Coreg 6.25 mg tablet 6.25 mg PO BID Qty: 180 3RF diphenoxylate-atropine [Lomotil] 2.5-0.025 mg tablet 1 tab PO QID PRN (Reason: diarrhea) Qty: 60 1RF Aspir-81 81 mg Tablet,Delayed Release (Dr/Ec) 81 mg PO DAILY Discharge Orders: Discharge ED (Routine); Ordered 08/23/23 Ordered By: Keith Casper Referrals: Eduardo Evans DO [Primary Care Provider] - 1 week Patient Instructions: Kidney Stones, Acute Low Back Pain (ED) Activity Restrictions/Additional Instructions: Please take all your antibiotics as directed. Please push plenty of fluids. Please watch for right lower quadrant abdominal pain with nausea and vomiting. Remember your CT scan showed a mildly abnormal appendix however your physical exam did not agree with appendicitis. This may be an early case and it may progress or may just be an abnormal imaging on the noncontrasted CT scan. Please follow-up with your family practice physician within the next 7 to 10 days for further evaluation and treatment or return to the ER if you start having fever worsening or uncontrolled pain. Coding Level of Care Code ED Air Export Coordinator for Mariella Moralez
[2023-08-23 17:29] LABS: Alanine Aminotransferase 42 U/L (0-41); Albumin Level 3.9 g/dL (3.5-5.2); Alkaline Phosphatase 110 U/L (40-130); Anion Gap 12.7 (5-19); Aspartate Amino Transferase 30 U/L (0-40); Blood Urea Nitrogen 20 mg/dL (8-23); Calcium 8.9 mg/dL (8.5-10.5); Carbon Dioxide 25 mmol/L (22-29); Chloride 106 mmol/L (98-107); Globulin 2.7 g/dL (1.3-4.6); Glucose 101 mg/dL (65-115); Lipase 20 U/L (13-60); Osmolality Calculated 293 mOsm/kg (285-295); Potassium 3.7 mmol/L (3.5-5.1); Sodium 140 mmol/L (136-145); Total Bilirubin 1.6 mg/dL (0.15-1.2); Total Protein 6.6 g/dL (6.6-8.7)
[2023-08-23 17:50] LABS: Add Urine Microscopic? YES; Bilirubin Urine Neg (Negative); Blood Urine 3+ (Negative); Glucose Urine UA Norm (Normal); Ketones Urine Negative (Negative); Leukocyte Esterase Urine Trace (Negative); Nitrate Urine Negative (Negative); Protein Urine Trace (Negative); Urine Appearance Clear (CLEAR); Urine Color Yellow (Yellow); Urobilinogen Urine Norm (Negative); pH Urine 5 (5-7)
[2023-08-23 17:51] LABS: Add Urine Culture? Yes; Bacteria Urine 1+ /hpf; RBC Urine 15-25 /hpf (0-2)
--- NOTE | 2023-08-23 18:01 | CTR_ITS ---
PROCEDURE INFORMATION: Exam: CT Abdomen And Pelvis Without Contrast Exam date and time: 08/23/2023 6:10 PM Age: 73 years old Clinical indication: Abdominal pain; Other: Bilat flank; Prior surgery; Surgery date: 6+ months; Surgery type: Gb. Ductal stent; Patient HX: C/O bilateral flank pain with hematuria. History of pancreatic cancer. ; Additional info: Flank pain, hematuria TECHNIQUE: Imaging protocol: Computed tomography of the abdomen and pelvis without contrast. Radiation optimization: All CT scans at this facility use at least one of these dose optimization techniques: automated exposure control; mA and/or kV adjustment per patient size (includes targeted exams where dose is matched to clinical indication); or iterative reconstruction. REPORTING DATA: Count of CT and Cardiac NM exams in prior 12 months: This patient has received 0 known CTs and 0 known cardiac nuclear medicine studies in the 12 months prior to the current study. COMPARISON: MR MRCP [id number] 09/06/2019 9:27 AM RADIATION DOSE METRICS: Total DLP (mGy-cm): 509.26 FINDINGS: Lungs: The visualized lung frye show mild bibasilar atelectasis. Liver: The liver is normal in size and homogeneous density. In the right lower liver, there is a 2.1 cm simple appearing cyst. Gallbladder and bile ducts: No calcified gallstones. No ductal dilation. Pancreas: Metallic stent is seen in the common bile duct traversing the head of the pancreas and into the 2nd portion of the duodenum. There is a poorly defined mass in the head of the pancreas measuring approximately 3.4 x 3.4 cm. There is dilatation of the pancreatic duct. There is stranding and inflammatory change around the body and head of the pancreas consistent with history of pancreatitis. There are no peripancreatic fluid collections. Spleen: The spleen is normal in size and density. There are multiple punctate granulomas in the spleen. Adrenal glands: The adrenal glands are normal. Kidneys and ureters: There is no hydronephrosis. In the right kidney, there is a 3 mm nonobstructive calculus. No obstructive ureteral calculi identified. Stomach and bowel: There is no evidence of small bowel or colonic obstruction. Moderate fecal stasis throughout the colon. Appendix: The appendix is thickened, measuring 11 mm in transverse diameter and demonstrates mild periappendiceal inflammatory stranding. Intraperitoneal space: No free air. No significant fluid collection. Vasculature: There is mild atherosclerotic calcification of the abdominal aorta and its branches without aneurysm. Lymph nodes: No enlarged retroperitoneal or mesenteric lymph nodes. Urinary bladder: There is mild bladder wall thickening. Reproductive: There is an impression on the floor the bladder by the enlarged prostate. The prostate measures 5 cm in transverse dimension. Bones/joints: No acute fracture. No evidence of bone destruction. Soft tissues: Unremarkable. CT/CT kidney stone [id number] IMPRESSION: 1. A poorly defined mass in the head of the pancreas, traversed by a common bile duct stent, consistent with patient's history of pancreatic carcinoma. There is peripancreatic inflammatory stranding also consistent with the patient's previously described pancreatitis. No peripancreatic fluid collections. 2. Bladder wall thickening suggesting cystitis, incomplete distention or chronic outflow obstruction. 3. Findings suggestive of mild acute appendicitis. Inflammatory changes in the mesentery related to pancreatitis may be a contributing factor. Clinical correlation is necessary. 4. Moderate fecal stasis throughout the colon.
[2023-08-23] MEDS: ketorolac 60 mg/2 mL INJ IM (18:27)
[2023-08-23] MEDS: orphenadrine 30 mg/mL Inj 2 mL 60 MG IM (18:28)
[2023-08-23] MEDS: ciprofloxacin 500 mg Tablet PO (20:37)
[2023-08-23 20:41] VITALS: PULSE 64; RESP 18; O2SAT 96
== END 2023-08-23 20:43 | disposition home or self-care (01) ==
PROVIDERS: Nurse Practitioner Family; Emergency Provider Emergency Medicine; PCP Family Medicine
DX: N20.0 Calculus of kidney (principal); N39.0 Urinary tract infection, site not specified; Z79.82 Long term (current) use of aspirin; I42.1 Obstructive hypertrophic cardiomyopathy; I10 Essential (primary) hypertension
CPT/HCPCS: 36415; 74176; 80053; 81001; 83690; 85025; 87086; 96372; 99284; J1885; J2360

== ENCOUNTER → 2023-09-09 14:41 | Outpatient (BNVA) | payer MEDICARE, SELFPAY | PROVIDERS: PCP Family Medicine; Visit Provider Family Medicine | DX: N39.0 Urinary tract infection, site not specified (principal) | CPT/HCPCS: 81000 ==

== ENCOUNTER 2023-10-03 22:09 | Emergency (ER) | payer MEDICARE, SELFPAY ==
[2023-10-03 22:15] VITALS: BP 177/81; PULSE 66; RESP 16; TEMP 36.4; O2SAT 97
[2023-10-03 22:54] LABS: Basophils % 0.4 %; Eosinophils # 0.2 10^3/uL (0.0-0.8); Eosinophils % 2.7 %; Hematocrit 44.6 % (37-53); Lymphocytes # 0.7 10^3/uL (0.8-4.8); Mean Corpuscular HGB Conc 33.2 g/dL (30-55); Mean Corpuscular Volume 99.6 fl (82-101); Mean Platelet Volume 9.9 fL (7.4-10.4); Monocytes # 0.4 10^3/uL (0.2-0.9); Neutrophils # 4.33 10^3/uL (1.8-7.7); Neutrophils % 77.5 %; Nucleated Red Blood Cells % 0 %; Platelet Count 151 10^3/cmm (157-399); Red Blood Count 4.48 10^6/uL (3.85-5.65); Red Cell Distribution Width 12.4 % (12.1-15.1); White Blood Count 5.58 10^3/uL (3.29-11.43)
--- NOTE | 2023-10-03 22:56 | CTR_ITS ---
PROCEDURE INFORMATION: Exam: CT Abdomen And Pelvis With Contrast Exam date and time: 10/03/2023 11:51 PM Age: 73 years old Clinical indication: Abdominal pain; Localized; Right lower quadrant (rlq); Prior surgery; Surgery date: 6+ months; Surgery type: Gb. Ductal stent; Patient HX: C/O rlq pain with nausea. History of pancreatic cancer. ; Additional info: Rlq abd pain, pancreatic cancer TECHNIQUE: Imaging protocol: Computed tomography of the abdomen and pelvis with contrast. Radiation optimization: All CT scans at this facility use at least one of these dose optimization techniques: automated exposure control; mA and/or kV adjustment per patient size (includes targeted exams where dose is matched to clinical indication); or iterative reconstruction. Contrast material: OMNI 350; Contrast volume: 100 ml; Contrast route: INTRAVENOUS (IV); COMPARISON: CT kidney stone [id number] 08/23/2023 6:10 PM RADIATION DOSE METRICS: Total DLP (mGy-cm): 450.73 FINDINGS: Lungs: There are multiple sub 5 mm pulmonary nodules. Liver: There are multiple indeterminate hypoattenuating hepatic lesions which demonstrate subtle peripheral enhancement, the largest in segment 8 measures 2.3 cm, series 3, image 18. An incidental hepatic or biliary cyst is unchanged from 2020 MRI. Gallbladder and bile ducts: Unchanged common bile duct stent extending to the ampulla. Redemonstrated ill-defined hypoattenuating lesion in the pancreatic head/uncinate process, difficult to measure, but approximately 4.7 x 5.9 x 5.0 cm (TV, AP, CC). There is dilatation of the upstream pancreatic duct and atrophy of the pancreatic body and tail. There is mild diffuse intrahepatic bile duct dilation. Cholecystectomy. Pancreas: See Gallbladder and bile ducts finding. Spleen: Splenic granulomas. Otherwise unremarkable. Adrenal glands: No nodules Kidneys and ureters: Multiple nonobstructing right renal calculi. Subcentimeter too small to characterize renal hypodensities. No hydroureteronephrosis. There is subtle urothelial thickening/enhancement within the left renal pelvis and bilateral ureters. Stomach and bowel: Pancreatic mass contacts the adjacent proximal duodenal and there is circumferential wall thickening in the 1st and 2nd portions of the duodenum, which may be reactive versus direct invasion of pancreatic lesion. Appendix: The appendix is again mildly enlarged with mild wall thickening. Intraperitoneal space: No free air. No significant fluid collection. Mild diffuse mesenteric edema/stranding. Vasculature: There is moderate narrowing of the proximal main portal vein just distal to the SMV confluence. There is focal severe stenosis/near occlusion of the SMV as it traverses the pancreatic lesion as well as of the common hepatic artery, which opacifies poorly distally and may be occluded. The gastroduodenal artery is also likely occluded. No aortic aneurysm. Lymph nodes: Prominent 1.2 cm left iliac chain node, series 3, image 68. Retroperitoneal, portacaval, peripancreatic, mesenteric, gastrohepatic adenopathy. Urinary bladder: Bladder is unremarkable. Large colonic stool burden. No bowel obstruction. Reproductive: Prostatomegaly. Bones/joints: Osseous demineralization. Degenerative change. No discrete lytic or blastic osseous lesions are identified. No acute fracture. Soft tissues: Unremarkable. CT/CT abdomen pelvis w con* [id number] IMPRESSION: 1. Redemonstrated ill-defined pancreatic head/uncinate process mass with diffuse upstream pancreatic duct dilation, consistent with malignancy. 2. 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 The proper hepatic artery is not definitely visualized, may be occluded. The gastroduodenal artery is likely occluded. 3. Multiple indeterminate hypoattenuating hepatic lesions, concerning for metastases. recommend MRI liver with and without IV contrast for further evaluation. 4. There are numerous sub 5 mm pulmonary nodules, indeterminate, but concerning for metastases. 5. There is subtle urothelial thickening/enhancement within the left renal pelvis and bilateral ureters, can be seen with pyelitis/ureteritis, consider correlation with urinalysis, as clinically indicated. 6. There is again noted mild enlargement of the appendix with mild wall thickening as well as mild adjacent fat stranding, although not significantly changed from 08/23/2023 exam, and favored reactive, less likely acute appendicitis given stability, but clinical correlation recommended. 7. Diffuse lymphadenopathy, concerning for metastatic disease. COMMENTS: Consistent with the [employer]'s Incidental Findings Committee white paper (J Am David Radiol 2018): Any incidental renal lesion less than 1 cm or classified as too small to characterize, or any incidental cystic renal lesion characterized as simple-appearing, is likely benign. No follow-up imaging is recommended for these lesions per consensus recommendations based on imaging criteria.
--- NOTE | 2023-10-03 22:59 | ED_ITS ---
HPI - Abdominal Pain 2 General: Chief Complaint: Abdominal Pain Stated Complaint: pain in lower right abd temp Time Seen by Provider: 10/03/23 22:52 History of Present Illness: Patient presents to the ER with complaints of right lower quadrant abdominal pain that radiates into his back for the last several days worsening significantly tonight. Patient has known pancreatic cancer. Patient has had this pain before and worked up with labs and CT scan that showed mild inflammation of the appendix that was thought due to pancreatic mass. Patient states the pain is worse this time. Patient denies any bowel or bladder problems, fever or chills. Patient is had a decreased appetite last 2 to 3 days. Review of Systems 2 General: Reports: 10 or more systems reviewed and unremarkable except in HPI and below PFSH ED 2 PFSH: Medical History Pancreatic lesion Hypertrophic obstructive cardiomyopathy Hypertension Surgical History History of open reduction and internal fixation (ORIF) procedure R distal Radius 09/10/2018 Family History Brother CAD (coronary artery disease), Onset Age: 50 Father CAD (coronary artery disease) Social History Smoking and tobacco/nicotine status: never used tobacco/nicotine Alcohol intake: never Substance/Drug Use: never Adopted: No Caregiver/support person: No Lives independently: Yes Do you think of yourself as: Straight/Heterosexual Current gender identity: Male Physical Exam 2 Const: COMMON NORMALS: no acute distress, average body habitus, patient oriented x3, no limitations, healthy appearing, alert and well nourished HENMT: COMMON NORMALS: normocephalic, atraumatic, hearing grossly normal bilaterally, external ears normal, Normal external nose present, moist oral mucous membranes and oropharynx normal HEAD & SCALP: normocephalic and atraumatic NOSE: Normal external nose present EXTERNAL EAR: Yes external ears normal Neck/C-Spine: COMMON NORMALS: no JVD Chest: COMMONS NORMALS: normal inspection of the chest and normal palpation of entire chest wall Resp: COMMON NORMALS: normal respiratory effort, No retractions, No use of accessory muscles and clear to auscultation bilaterally AUSCULTATION: clear to auscultation bilaterally Cardio: COMMON NORMALS: no JVD, regular rate, regular rhythm, S1 normal heart sound present, S2 normal heart sound present, No gallops present (Cardio), No clicks present (Cardio), No murmurs present (Cardio) and No rub (Cardio) R ATE: regular rate RHYTHM: regular rhythm HEART SOUNDS: S1 normal heart sound present and S2 normal heart sound present GI: COMMON NORMALS: Normal to inspection, nondistended, normoactive bowel sounds present, Soft to palpation, No hepatosplenomegaly present and no masses; negative for non-tender (Tender to palpate right lower quadrant reproduces pain) PALPATION: Yes Soft to palpation and Yes No hepatosplenomegaly present Neuro: COMMON NORMALS: patient oriented x3 SENSORIUM/ORIENTATION: Yes alert Course 2 Vital Signs: Vital signs: Vital Signs Temperature 97.6 F 10/03/23 22:15 Pulse Rate 62 10/04/23 01:09 Respiratory Rate 18 10/04/23 01:28 Blood Pressure 165/92 10/04/23 01:09 Pulse Oximetry 97 10/04/23 01:09 Oxygen Delivery Me thod Room Air 10/04/23 01:09 MDM - Abdominal Pain Medical Decision Making Patient presented with right lower quadrant pain. Patient had lab work that included CBC CMP lipase and urinalysis all of which showed no significant change from patient's last blood work. Patient had a contrasted CT scan of his abdomen pelvis which again showed an irritated appendix similar to the one done back on August 23, 2023. However his mass in his pancreatic head appears to be getting larger. These results was discussed with the patient. Patient was given a total of 8 mg of morphine 4 mg Zofran and 1 L normal saline in the ER. This helped the patient's pain significantly. Patient be discharged home. Differential Diagnosis Likely abdominal pain; Unlikely acute appendicitis, calculus of kidney, constipation, diverticulitis, endometriosis, gastroenteritis, pancreatitis or small bowel obstruction Medical Records I reviewed the patient's medical records. Lab Data I reviewed the patient's lab results. 10/03/23 22:45 10/03/23 22:45 Labs/Radiology: Radiology Impressions Abdomen/Pelvis CT 10/03/23 22:56 IMPRESSION: 1. Redemonstrated ill-defined pancreatic head/uncinate process mass with diffuse upstream pancreatic duct dilation, consistent with malignancy. 2. 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 The proper hepatic artery is not definitely visualized, may be occluded. The gastroduodenal artery is likely occluded. 3. Multiple indeterminate hypoattenuating hepatic lesions, concerning for metastases. recommend MRI liver with and without IV contrast for further evaluation. 4. There are numerous sub 5 mm pulmonary nodules, indeterminate, but concerning for metastases. 5. There is subtle urothelial thickening/enhancement within the left renal pelvis and bilateral ureters, can be seen with pyelitis/ureteritis, consider correlation with urinalysis, as clinically indicated. 6. There is again noted mild enlargement of the appendix with mild wall thickening as well as mild adjacent fat stranding, although not significantly changed from 08/23/2023 exam, and favored reactive, less likely acute appendicitis given stability, but clinical correlation recommended. 7. Diffuse lymphadenopathy, concerning for metastatic disease. COMMENTS: Consistent with the [employer]'s Incidental Findings Committee white paper (J Am David Radiol 2018): Any incidental renal lesion less than 1 cm or classified as too small to characterize, or any incidental cystic renal lesion characterized as simple-appearing, is likely benign. No follow-up imaging is recommended for these lesions per consensus recommendations based on imaging criteria. Laboratory Results WBC 5.58 10^3/uL (3.29-11.43) 10/03/23 22:45 RBC 4.48 10^6/uL (3.85-5.65) 10/03/23 22:45 Hgb 14.80 g/dL (11.27-16.99) 10/03/23 22:45 Hct 44.6 % (37-53) 10/03/23 22:45 MCV 99.6 fl (82-101) 10/03/23 22:45 MCH 33.0 pg (27-33) 10/03/23 22:45 MCHC 33.2 g/dL (30-55) 10/03/23 22:45 RDW 12.4 % (12.1-15.1) 10/03/23 22:45 Plt Count 151 10^3/cmm (157-399) L 10/03/23 22:45 MPV 9.9 fL (7.4-10.4) 10/03/23 22:45 Neut % (Auto) 77.5 % 10/03/23 22:45 Lymph % (Auto) 12.0 % 10/03/23 22:45 Collin % (Auto) 7.0 % 10/03/23 22:45 Eos % (Auto) 2.7 % 10/03/23 22:45 Baso % (Auto) 0.4 % 10/03/23 22:45 Neut # (Auto) 4.33 10^3/uL (1.8-7.7) 10/03/23 22:45 Lymph # (Auto) 0.7 10^3/uL (0.8-4.8) L 10/03/23 22:45 Collin # (Auto) 0.4 10^3/uL (0.2-0.9) 10/03/23 22:45 Eos # (Auto) 0.2 10^3/uL (0.0-0.8) 10/03/23 22:45 Baso # (Auto) 0.0 10^3/uL (0.0-0.1) 10/03/23 22:45 Nucleated RBC % (auto) 0 % 10/03/23 22:45 Nucleated RBCs # 0.0 /100WBC 10/03/23 22:45 Sodium 140 mmol/L (136-145) 10/03/23 22:45 Potassium 4.3 mmol/L (3.5-5.1) 10/03/23 22:45 Chloride 106 mmol/L (98-107) 10/03/23 22:45 Carbon Dioxide 25 mmol/L (22-29) 10/03/23 22:45 Anion Gap 13.3 (5-19) 10/03/23 22:45 BUN 27 mg/dL (8-23) H 10/03/23 22:45 Creatinine 0.6 mg/dL (0.7-1.2) L 10/03/23 22:45 GFR Calculation Not Reportable 10/03/23 22:45 Glucose 113 mg/dL (65-115) 10/03/23 22:45 Calculated Osmolality 296 mOsm/kg (285-295) H 10/03/23 22:45 Calcium 8.4 mg/dL (8.5-10.5) L 10/03/23 22:45 Total Bilirubin 1.8 mg/dL (0.15-1.2) H 10/03/23 22:45 AST 67 U/L (0-40) H 10/03/23 22:45 ALT 146 U/L (0-41) H 10/03/23 22:45 Alkaline Phosphatase 187 U/L (40-130) H 10/03/23 22:45 Total Protein 6.8 g/dL (6.6-8.7) 10/03/23 22:45 Albumin 3.9 g/dL (3.5-5.2) 10/03/23 22:45 Globulin 2.9 g/dL (1.3-4.6) 10/03/23 22:45 Lipase 17 U/L (13-60) 10/03/23 22:45 Urine Color Yellow (Yellow) 10/04/23 01:16 Urine Appearance Clear (CLEAR) 10/04/23 01:16 Urine pH 5 (5-7) 10/04/23 01:16 Ur Specific [place]ett 1.015 (1.005-1.030) 10/04/23 01:16 Urine Protein Trace (Negative) 10/04/23 01:16 Urine Glucose (UA) Norm (Normal) 10/04/23 01:16 Urine Ketones 1+ (Negative) H 10/04/23 01:16 Urine Blood 2+ (Negative) H 10/04/23 01:16 Urine Nitrate Negative (Negative) 10/04/23 01:16 Urine Bilirubin Neg (Negative) 10/04/23 01:16 Urine Urobilinogen Norm mg/dL (Negative) 10/04/23 01:16 Ur Leukocyte Esterase Negative (Negative) 10/04/23 01:16 Urine RBC 5-10 /hpf (0-2) H 10/04/23 01:16 Urine WBC 0-4 /hpf (0-5) H 10/04/23 01:16 Ur Squamous Epith Cells None /hpf (0-5) 10/04/23 01:16 Calcium Oxalate Crystal 15-25 /hpf H 10/04/23 01:16 Amorphous Sediment Not Reportable 10/04/23 01:16 Urine Bacteria Trace /hpf (NONE) 10/04/23 01:16 All radiology interpretation(s) finalized by discharge Discharge Plan Discharge Patient Disposition: Home Clinical Impression: Pancreatic lesion Abdominal pain Qualifiers: Abdominal location: right lower quadrant Qualified Code(s): R10.31 - Right lower quadrant pain Condition: Stable Prescriptions: No Action loperamide 2 mg capsule 2 mg PO Q4H PRN (Reason: loose stool) Qty: 60 0RF Rx Instructions: take each loose stool until symptoms controlled; do not exceed 8 mg per 24 hrs tamsulosin [Flomax] 0.4 mg capsule 0.4 mg PO DAILY Qty: 7 0RF ciprofloxacin HCl 500 mg tablet 500 mg PO Q12H Qty: 28 0RF tamsulosin 0.4 mg capsule PO Hold Instructions: Doctor's Order Coreg 6.25 mg tablet 6.25 mg PO BID Qty: 180 3RF diphenoxylate-atropine [Lomotil] 2.5-0.025 mg tablet 1 tab PO QID PRN (Reason: diarrhea) Qty: 60 1RF sulfamethoxazole-trimethoprim [Bactrim DS] 800-160 mg tablet 1 tab PO BID Qty: 14 0RF hydrocodone-acetaminophen 5-325 mg tablet 1 tab PO Q6H PRN (Reason: pain) 7 Days Qty: 28 0RF Aspir-81 81 mg Tablet,Delayed Release (Dr/Ec) 81 mg PO DAILY Discharge Orders: Discharge ED (Routine); Ordered 10/04/23 Ordered By: Keith Casper Referrals: Eduardo Evans DO [Primary Care Provider] - 1 week Patient Instructions: Abdominal Pain (ED), Opioid Safety, Pain Management Activity Restrictions/Additional Instructions: Your blood work was very similar to what was done the last time you are in ER with no significant changes. Your CT scan again showed your appendix was slightly irritated but they think this is due to your pancreatic mass.. Your pancreatic mass has grown. Please follow-up with your oncology or family practice doc within next 7 days for further evaluation and treatment. Coding Level of Care Code ED Edger Hand for Mariella Moralez
[2023-10-03 23:13] VITALS: RESP 18
[2023-10-03] MEDS: morphine 4 mg/mL SDV 1 mL IVP (23:13)
[2023-10-03] MEDS: sodium chloride 0.9% 1,000 ML 999 ML IV (23:14)
[2023-10-03] MEDS: ondansetron 2 mg/ML SDV 2 mL 4 MG IVP (23:14)
[2023-10-03 23:16] LABS: Alanine Aminotransferase 146 U/L (0-41); Albumin Level 3.9 g/dL (3.5-5.2); Alkaline Phosphatase 187 U/L (40-130); Anion Gap 13.3 (5-19); Aspartate Amino Transferase 67 U/L (0-40); Blood Urea Nitrogen 27 mg/dL (8-23); Calcium 8.4 mg/dL (8.5-10.5); Carbon Dioxide 25 mmol/L (22-29); Chloride 106 mmol/L (98-107); Globulin 2.9 g/dL (1.3-4.6); Glucose 113 mg/dL (65-115); Lipase 17 U/L (13-60); Osmolality Calculated 296 mOsm/kg (285-295); Potassium 4.3 mmol/L (3.5-5.1); Sodium 140 mmol/L (136-145); Total Bilirubin 1.8 mg/dL (0.15-1.2); Total Protein 6.8 g/dL (6.6-8.7)
[2023-10-03] MEDS: iohexol 350 mg/mL 500 mL Btl (per mL) IV (23:54)
[2023-10-04 01:09] VITALS: BP 165/92; PULSE 62; O2SAT 97
[2023-10-04 01:28] VITALS: RESP 18
[2023-10-04] MEDS: morphine 4 mg/mL SDV 1 mL IVP (01:28)
[2023-10-04 01:32] LABS: Add Urine Microscopic? YES; Bilirubin Urine Neg (Negative); Blood Urine 2+ (Negative); Glucose Urine UA Norm (Normal); Ketones Urine 1+ (Negative); Leukocyte Esterase Urine Negative (Negative); Nitrate Urine Negative (Negative); Protein Urine Trace (Negative); Specific Gravity, Urine 1.015 (1.005-1.030); Urine Appearance Clear (CLEAR); Urine Color Yellow (Yellow); Urobilinogen Urine Norm (Negative); pH Urine 5 (5-7)
[2023-10-04 01:36] LABS: Bacteria Urine TRACE /hpf; Calcium Oxalate Crystals Urine 15-25 /hpf; WBC Urine 0-4 /hpf (0-5)
== END 2023-10-04 01:56 | disposition home or self-care (01) ==
PROVIDERS: Physician Assistant; Emergency Provider Emergency Medicine; PCP Family Medicine
DX: K86.9 Disease of pancreas, unspecified (principal); R10.31 Right lower quadrant pain; Z79.82 Long term (current) use of aspirin; I42.1 Obstructive hypertrophic cardiomyopathy; I10 Essential (primary) hypertension
CPT/HCPCS: 36415; 74177; 80053; 81001; 83690; 85025; 96361; 96374; 96375; 96376; 99285; J2270; J2405; J7030; Q9967

== ENCOUNTER 2023-10-17 07:54 | Outpatient (CLI) | payer OTHER, SELFPAY ==
[2023-10-17 08:19] LABS: Basophils % 0.2 %; Eosinophils # 0.1 10^3/uL (0.0-0.8); Eosinophils % 1.9 %; Hematocrit 44.7 % (37-53); Lymphocytes # 0.7 10^3/uL (0.8-4.8); Lymphocytes % 15.6 %; Mean Corpuscular HGB Conc 34.7 g/dL (30-55); Mean Corpuscular Hemoglobin 33.4 pg (27-33); Mean Corpuscular Volume 96.3 fl (82-101); Mean Platelet Volume 10.3 fL (7.4-10.4); Monocytes # 0.4 10^3/uL (0.2-0.9); Monocytes % 9.3 %; Neutrophils # 3.36 10^3/uL (1.8-7.7); Neutrophils % 72.6 %; Nucleated Red Blood Cells % 0 %; Platelet Count 134 10^3/cmm (157-399); Red Blood Count 4.64 10^6/uL (3.85-5.65); Red Cell Distribution Width 12.8 % (12.1-15.1); White Blood Count 4.63 10^3/uL (3.29-11.43)
[2023-10-17 08:29] LABS: INR 1.01 (0.8-1.2)
[2023-10-17 08:30] LABS: Partial Thromboplastin Time 30.6 SECONDS (23.9-36.7)
[2023-10-17 08:33] LABS: Alanine Aminotransferase 243 U/L (0-41); Albumin Level 3.9 g/dL (3.5-5.2); Alkaline Phosphatase 384 U/L (40-130); Anion Gap 8.5 (5-19); Aspartate Amino Transferase 85 U/L (0-40); Blood Urea Nitrogen 14 mg/dL (8-23); Calcium 8.5 mg/dL (8.5-10.5); Carbon Dioxide 31 mmol/L (22-29); Chloride 99 mmol/L (98-107); Globulin 2.8 g/dL (1.3-4.6); Glucose 120 mg/dL (65-115); Osmolality Calculated 282 mOsm/kg (285-295); Potassium 3.5 mmol/L (3.5-5.1); Sodium 135 mmol/L (136-145); Total Bilirubin 1.5 mg/dL (0.15-1.2); Total Protein 6.7 g/dL (6.6-8.7)
[2023-10-17 08:54] LABS: HIV 1 & 2 Antibody Non-Reactive (Non-Reactiv); HIV 1 & 2 Antigen Non-Reactive (Non-Reactiv)
[2023-10-17 09:02] LABS: Hepatitis A Antibody IgM Non-Reactive (Nonreactive); Hepatitis B Core AB, Total Non-Reactive (Nonreactive); Hepatitis B Surface AB < 3.5 (11.5-1000); Hepatitis B Surface Antigen Non-Reactive (Nonreactive); Hepatitis C Virus Antibody Non-Reactive (Nonreactive)
[2023-10-20 12:50] LABS: Toxoplasma AB IGG <7.20 IU/mL; Toxoplasma AB IGM <8.00 AU/mL
[2023-10-20 16:10] LABS: Epstein Barr Virus DNA PCR NOT DETECTED; Epstein Barr Virus DNA QN PCR NOT DETECTED copies/mL; Epstein Barr Virus Source SERUM
[2023-10-24 23:04] LABS: Treponema pallidum Ab NON-REACTIVE
== END 2023-10-17 07:55 | disposition home or self-care (01) ==
LOC: LAB 07:55
PROVIDERS: PCP Family Medicine; Visit Provider Family Medicine
DX: K86.9 Disease of pancreas, unspecified (principal); K72.90 Hepatic failure, unspecified without coma; K85.90 Acute pancreatitis without necrosis or infection, unspecified
CPT/HCPCS: 36415; 80053; 85025; 85610; 85730; 86644; 86705; 86706; 86709; 86777; 86780; 86803; 87340; 87798; 87806

== ENCOUNTER 2023-12-26 21:29 | Emergency (ER) | payer MEDICARE, SELFPAY ==
[2023-12-26 21:48] VITALS: BP 148/88; PULSE 77; RESP 16; TEMP 36.3; O2SAT 98; BMI 23.7
--- NOTE | 2023-12-26 22:30 | W.ED.ABDPA2 ---
HPI - Abdominal Pain General: Chief Complaint: Abdominal Pain Stated Complaint: need fluid drawn off Time Seen by Provider: 12/26/23 22:23 History of Present Illness: Patient presents to the ER with his main complaint of abdominal swelling and he said he needs some fluid drained off. Patient does have pancreatic cancer is undergoing chemotherapy and gets therapeutic paracentesis with his last 1 being about a week ago at [facility] where they pulled off 12 pounds of fluid. Patient has no other complaints at this time. Patient was informed we are unable to do this however we can set him up on an outpatient basis with radiology through case management come Friday. Patient is accepting of this. Review of Systems General: Reports: 10 or more systems reviewed and unremarkable except in HPI and below PFSH ED PFSH: Medical History Pancreatic lesion Hypertrophic obstructive cardiomyopathy Hypertension Surgical History History of open reduction and internal fixation (ORIF) procedure R distal Radius 09/10/2018 Family History Brother CAD (coronary artery disease), Onset Age: 50 Father CAD (coronary artery disease) Social History Smoking and tobacco/nicotine status: never used tobacco/nicotine Alcohol intake: never Substance/Drug Use: never Adopted: No Caregiver/support person: No Lives independently: Yes Do you think of yourself as: Straight/Heterosexual Current gender identity: Male Physical Exam Const: COMMON NORMALS: no acute distress, average body habitus, patient oriented x3, no limitations, healthy appearing, alert and well nourished Neck/C-Spine: COMMON NORMALS: no JVD Chest: COMMONS NORMALS: normal inspection of the chest and normal palpation of entire chest wall Resp: COMMON NORMALS: normal respiratory effort, No retractions, No use of accessory muscles and clear to auscultation bilaterally AUSCULTATION: clear to auscultation bilaterally Cardio: COMMON NORMALS: no JVD, regular rate, regular rhythm, S1 normal heart sound present, S2 normal heart sound present, No gallops present (Cardio), No clicks present (Cardio), No murmurs present (Cardio) and No rub (Cardio) RATE: regular rate RHYTHM: regular rhythm HEART SOUNDS: S1 normal heart sound present and S2 normal heart sound present GI: OTHER: Soft mildly distended generally tender to palpate diffusely Neuro: COMMON NORMALS: patient oriented x3 SENSORIUM/ORIENTATION: Yes alert Course Vital Signs: Vital signs: Vital Signs Temperature 97.4 F L 12/26/23 21:48 Pulse Rate 77 12/26/23 21:48 Respiratory Rate 16 12/26/23 21:48 Blood Pressure 148/88 12/26/23 21:48 Pulse Oximetry 98 12/26/23 21:48 Oxygen Delivery Me thod Room Air 12/26/23 21:48 MDM - Abdominal Pain Medical Decision Making Patient was informed we are unable to do a paracentesis at this time or till Friday at the soonest. Patient will be set up for an appointment with radiology for therapeutic paracentesis secondary to pancreatic cancer. We will consult case management for this. Medical Records I reviewed the patient's medical records. Lab Data I reviewed the patient's lab results. No radiology studies performed this visit Discharge Plan Discharge Patient Disposition: Home Clinical Impression: Malignant ascites Pancreatic cancer Qualifiers: Pancreatic malignancy location: unspecified Qualified Code(s): C25.9 - Malignant neoplasm of pancreas, unspecified Condition: Stable Prescriptions: No Action loperamide 2 mg capsule 2 mg PO Q4H PRN (Reason: loose stool) Qty: 60 0RF Rx Instructions: take each loose stool until symptoms controlled; do not exceed 8 mg per 24 hrs tamsulosin [Flomax] 0.4 mg capsule 0.4 mg PO DAILY Qty: 7 0RF ciprofloxacin HCl 500 mg tablet 500 mg PO Q12H Qty: 28 0RF oxycodone 10 mg tablet 10 mg PO Q4H PRN (Reason: pain) 1 Days Qty: 1 0RF tamsulosin 0.4 mg capsule PO Hold Instructions: Doctor's Order dexamethasone 4 mg tablet 2 mg PO DAILY Qty: 1 0RF diphenoxylate-atropine [Lomotil] 2.5-0.025 mg tablet 1 tab PO QID PRN (Reason: diarrhea) Qty: 60 1RF sulfamethoxazole-trimethoprim [Bactrim DS] 800-160 mg tablet 1 tab PO BID Qty: 14 0RF Creon 24,000-76,000 -120,000 unit capsule,delayed release(DR/EC) 1 cap PO TID Qty: 90 1RF Rx Instructions: administer with meals and/or snacks Aspir-81 81 mg Tablet,Delayed Release (Dr/Ec) 81 mg PO DAILY Discharge Orders: Discharge ED (Routine); Ordered 12/26/23 Ordered By: Keith Casper Referrals: Eduardo Evans, [Primary Care Provider] - 1 week Patient Instructions: Malignant Ascites Activity Restrictions/Additional Instructions: He had been referred to case management for consultation for radiology for therapeutic paracentesis of your abdomen to remove the excess fluid. They should be calling you Friday morning to arrange the appointment. Otherwise please follow-up with your family practice physician within next week for further evaluation and treatment. Coding Level of Care Code ED Automation Specialist for Mariella Moralez
[2023-12-26 22:56] VITALS: PULSE 70; RESP 18; O2SAT 96
--- NOTE | 2024-01-22 15:12 | PC.SOCIAL ---
Paracentesis Attempted to reach both patient and his to ensure that he has had his paracentesis recommended. Unable to reach on any of the phone numbers listed. Will notify his primary care clinic of this so that they are aware.
== END 2023-12-26 22:53 | disposition home or self-care (01) ==
PROVIDERS: Emergency Provider Emergency Medicine; PCP Family Medicine
DX: C25.9 Malignant neoplasm of pancreas, unspecified (principal); R18.0 Malignant ascites; Z79.60 Long term (current) use of unspecified immunomodulators and immunosuppressants; Z79.82 Long term (current) use of aspirin; I10 Essential (primary) hypertension; I42.1 Obstructive hypertrophic cardiomyopathy
CPT/HCPCS: 99281

== ENCOUNTER → 2024-01-23 07:34 | Outpatient (BNVA) | payer MEDICARE, SELFPAY | PROVIDERS: PCP Family Medicine; Referring Provider Clinical Nurse Specialist Adult Health; Visit Provider Surgery | DX: C25.9 Malignant neoplasm of pancreas, unspecified (principal); R18.0 Malignant ascites | CPT/HCPCS: 99204 ==

== ENCOUNTER 2024-01-27 11:15 | Day surgery (SDC) | payer MEDICARE, SELFPAY ==
[2024-01-27 11:30] VITALS: BP 129/92; PULSE 66; RESP 16; TEMP 36.6; O2SAT 94; BMI 20.2
--- NOTE | 2024-01-27 11:39 | US_ITS ---
WS: [id number] ULTRASOUND-GUIDED PARACENTESIS CLINICAL INFORMATION: ascites COMPARISON: None. Procedure Informed consent: The risks, benefits, and alternatives of the procedure were discussed with the shonna ent. Verbal and written consent was obtained. Timeout: A timeout was performed to confirm the correct patient, procedure, and site. Preparation: A suitable skin site was identified. The patient was prepped and draped in usual sterile fashion. Lidocaine 1% was used for local anesthesia. Catheter: 4 [place] One-step Yueh catheter. Side: LEFT lower quadrant. Fluid Volume: 7000 ml Color: Cream-colored DISPOSITION: Discarded safely. Complications: None. Patient disposition: Discharged from the department in stable condition. US/US paracentesis abd w [id number] IMPRESSION: Uncomplicated ultrasound-guided paracentesis. Removal of 7000 cc
[2024-01-27] MEDS: albumin 75 G/300 ML BAG 60 G IV (12:53)
== END 2024-01-27 13:55 | disposition home or self-care (01) ==
LOC: GILAB 11:15
PROVIDERS: Radiology Neuroradiology; PCP Family Medicine; Visit Provider Surgery
PROC: (CPT 49082; principal; 2024-01-27 12:30)
DX: R18.8 Other ascites (principal)
CPT/HCPCS: 49083; 96365; P9046

== ENCOUNTER 2024-02-02 07:05 | Day surgery (SDC) | payer MEDICARE, SELFPAY ==
[2024-02-02 07:19] VITALS: BP 140/96; PULSE 81; RESP 16; TEMP 36.2; O2SAT 95
--- NOTE | 2024-02-02 07:20 | US_ITS ---
WS: [id number] ULTRASOUND-GUIDED THERAPEUTIC. PARACENTESIS Procedure, risks, and complications have been explained to the patient. Consent is obtained. Utilizing aseptic technique and 1% buffered lidocaine, a small dermatome was made through which a 5 F rench Yueh catheter was inserted. Approximately 7700 ml of clear peritoneal fluid was obtained witho ut difficulty. No complications encountered. US/US paracentesis abd w [id number] IMPRESSION: Uncomplicated paracentesis yielding 7700 ml of peritoneal fluid.
[2024-02-02 08:00] VITALS: BMI 18.3
== END 2024-02-02 08:41 | disposition home or self-care (01) ==
PROVIDERS: Radiology Diagnostic Radiology; PCP Family Medicine; Visit Provider Surgery
PROC: (CPT 49082; principal; 2024-02-02 08:00)
DX: R18.8 Other ascites (principal)
CPT/HCPCS: 49083

== ENCOUNTER 2024-02-03 06:02 | Day surgery (SDC) | payer MEDICARE, SELFPAY ==
[2024-02-03] VITALS (10 sets, daily range): BP systolic 139–171; BP diastolic 73–99; PULSE 48–73; RESP 10–18; TEMP 36.3–37.1; O2SAT 94–100; BMI 20.2
[2024-02-03] MEDS: sodium chloride 0.9% 1,000 ML 30 ML IV (06:53)
--- NOTE | 2024-02-03 06:53 | W.PM.OPSUD ---
Surgery/Procedure H&P Update DATE OF PROCEDURE: February 03, 2024 DATE H&P PERFORMED: 01/23/24 H&P UPDATE INFORMATION: I have reviewed H&P completed within last 30 days, I have examined patient prior to procedure and No changes to prior documentation PLANNED PROCEDURE: Operation Date: 02/03/24 08:00 Proposed Procedures p Laparoscopic Peritoneal Cath Inserti [id number], C25.9, R18.0(Not Applicable) - Joey Fisher DO
[2024-02-03] MEDS: ceFAZolin 2,000 MG in sodium chloride 0.9% (plus) 50 ML 100 MG IV (07:31)
--- NOTE | 2024-02-03 07:51 | ANES.PREANE2 ---
Pre-Anesthetic Assessment Height/Weight: Height 1.73 m Weight 60.328 kg Temp Pulse Resp BP Pulse Ox O2 Del Method 97.3 F L 73 18 142/99 96 Room Air 02/03/24 06:23 02/03/24 06:23 02/03/24 06:23 02/03/24 06:23 02/03/24 06:23 02/03/24 06:23 Operation Date: 02/03/24 08:00 Proposed Procedures p Laparoscopic Peritoneal Cath Inserti [id number], C25.9, R18.0(Not Applicable) - Joey Fisher DO Familial anesthetic complications: none Was Beta Ana taken within 24 hours: N/A Was Clonidine taken within 24 hours: N/A Last intake: Intake Last Liquid Date 02/02/24 Last Liquid Time 16:00 Last Solid Date 02/02/24 Last Solid Time 16:00 Social No alcohol and No tobacco Exam alert, oriented x 3, clear to auscultation bilaterally and regular rate & rhythm Airway Submandibular: within normal limits Cervical ROM: within normal limits Mallampati: Class II Dentition: full CV/HEM Hypertension GI Pancreatic CA Neuropsych Chronic pain Anesthetic Plan ASA status: 3 Anesthesia: General Medications/Allergies Home Medications Medication Instructions Recorded Confirmed Last Taken Type oxycodone 10 mg tablet 10 mg PO Q4H PRN pain from cancer 01/12/24 02/02/24 01/29/24 Rx 17 days #100 tabs wheeled walker with seat/hand brake #1 ea 01/14/24 01/29/24 01/29/24 Rx [id number] 1 cap PO TID digestion #90 caps 01/20/24 02/02/24 02/02/24 Rx 24,000-76,000-120,000 unit capsule,delayed rel (Creon) Allergies Allergy/AdvReac Type Severity Reaction Status Date / Time No Known Allergies Allergy Verified 02/02/24 11:48 Current Medications Generic Name Dose Route Start Last Admin Trade Name Freq PRN Reason Stop Dose Admin Sodium Chloride 1,000 mls @ 30 mls/hr 02/03/24 06:15 02/03/24 06:53 Sodium Chloride 0.9% IV 02/04/24 06:14 30 mls/hr .Q24H ELADIO Administration PFSH Anesthesia Medical History Pancreatic lesion Hypertrophic obstructive cardiomyopathy Hypertension Surgical History History of open reduction and internal fixation (ORIF) procedure R distal Radius 09/10/2018 Family History Brother CAD (coronary artery disease), Onset Age: 50 Father CAD (coronary artery disease) Social History Smoking and tobacco/nicotine status: never used tobacco/nicotine Alcohol intake: never Substance/Drug Use: never Adopted: No Caregiver/support person: No Lives independently: Yes Do you think of yourself as: Straight/Heterosexual Current gender identity: Male Data Anesthesia Cardiac Studies: No Data to Display
[2024-02-03] MEDS: lidocaine-epi 2% PF 1:200,000 20 mL SDV XX (08:02)
--- NOTE | 2024-02-03 08:13 | PM.OP ---
Operative Report Date of procedure: February 03, 2024 Pre-op diagnosis: Pancreatic cancer Ascites Post-op diagnosis: same Procedure done: Laparoscopic peritoneal catheter placement Implants: Peritoneal dialysis catheter Specimens removed/disposition: Ascitic fluid Surgeon: Joey Fisher DO Anesthesia: General and Local Estimated blood loss (mL): 5 Complications: None apparent Brief History: This is a very pleasant 73-year-old gentleman with pancreatic cancer. He is requiring frequent paracentesis for ascites. He desired peritoneal catheter placement to drain his ascites at home. The risk and benefits were explained and documented. Procedure: Patient was wheeled in the operative room and placed on the OR table in supine position. The abdomen was inspected prepped and draped in usual sterile fashion. A timeout was performed all present were in agreement. A Veress needle was placed in the left upper quadrant and intra-abdominal insufflation was brought to 15 mmHg. A 5 mm trocar was then placed into the site using Optiview. An 8 mm trocar was then placed just left of the umbilicus and tunneled subcutaneously and then preperitoneal he down to the pelvis. This was done under direct visualization. A peritoneal dialysis catheter was then fed through this trocar down into the pelvis. Both cuffs were noted to be subcutaneously and preperitoneum only. 200 cc of purulent ascitic fluid was suctioned through the catheter. Some of the fluid was sent for culture. The catheter appeared in good working order. Ports were removed. A 2-0 Ethilon suture was used to suture the catheter in place and closed the incisions in a simple interrupted fashion. Sterile bandages were applied. Patient tolerated the procedure well.
--- NOTE | 2024-02-03 08:23 | XRR_ITS ---
PROCEDURE INFORMATION: Exam: XR Chest Exam date and time: 02/03/2024 8:28 AM Age: 73 years old Clinical indication: Device placement; Other: Dialysis cath; Prior surgery; Surgery date: Post-operative (0-2 days); Additional info: Post dialysis cath TECHNIQUE: Imaging protocol: Radiologic exam of the chest. Views: 1 view. COMPARISON: CT abdomen pelvis w con* [id number] 10/03/2023 11:51 PM FINDINGS: Tubes, catheters and devices: Satisfactory appearance of right chest port with catheter tunneled into the right internal jugular vein, and terminating near the superior cavoatrial junction. Lungs: New pneumonitis and/or atelectasis in the right lung base. Additional vertical bands of opacity projecting over both lungs may be skin folds or other superimposed structures. However, they could be additional areas of atelectasis and/or pneumonitis. Pleural spaces: Unremarkable. No pleural effusion. No pneumothorax. Heart/Mediastinum: Unremarkable. No cardiomegaly. Diaphragm: Increased mild elevation of the right hemidiaphragm. Bones/joints: Mild scoliosis with mild multilevel spondylosis. XR/XR chest 1V portable [id number] IMPRESSION: As above.
--- NOTE | 2024-02-03 14:11 | ANE.PACU2 ---
Inpatient post-anesthesia follow up: Airway intact: Yes Vital signs: Temperature 98.7 F Pulse Rate 67 Respiratory Rate 18 Blood Pressure 144/99 Pulse Oximetry 98 Oxygen Delivery Me thod Room Air Oxygen Flow Rate 8 Fraction of Inspir ed Oxygen Hydration adequate: Yes Nausea and vomiting: No Pain level: 2 Mental status: Baseline
== END 2024-02-03 10:10 | disposition home or self-care (01) ==
PROVIDERS: PCP Family Medicine; Visit Provider Surgery
PROC: 0WHG43Z Insertion of Infusion Device into Peritoneal Cavity, Percutaneous Endoscopic Approach (ICD-10-PCS; CPT 49324; principal; 2024-02-03 08:00)
DX: C25.9 Malignant neoplasm of pancreas, unspecified (principal); R18.0 Malignant ascites; I10 Essential (primary) hypertension; G89.29 Other chronic pain; Z79.891 Long term (current) use of opiate analgesic; Z79.82 Long term (current) use of aspirin
CPT/HCPCS: 49324; 71045; 87070; 87075; 87205; J0690; J1100; J2405; J2704; J2710; J3010; J3490; J7030

== ENCOUNTER → 2024-02-16 09:15 | Outpatient (BNVA) | payer MEDICARE, SELFPAY | PROVIDERS: PCP Family Medicine; Visit Provider Surgery | DX: C25.9 Malignant neoplasm of pancreas, unspecified (principal); Z99.2 Dependence on renal dialysis; Z98.890 Other specified postprocedural states | CPT/HCPCS: 99024 ==